=== PATIENT | female | born 1995 | race Caucasian/White ===

== ENCOUNTER → 2018-07-08 14:50 | Outpatient (CLI) | payer OTHER, SELFPAY ==
[2018-07-08 15:27] LABS: Absolute Lymphocyte Count 1.73 X10^3/ul (0.83-4.51); Absolute Neutrophil Count 4.5 X10^3/uL (2.0-7.7); Basophil# 0.01 X10^3/uL; Basophil% 0.2 % (0-1); Eosinophil# 0.05 X10^3/uL; Eosinophils% 0.8 % (0-5); Hematocrit 37.1 % (37-47); Hemoglobin 12.7 g/dl (12.0-15.0); Lymphocyte # 1.73 X10^3/ul (4.0); Lymphocyte % 26.2 % (19-41); Mean Corp Hgb Conc 34.2 g/gl (32-36); Mean Corpuscular Volume 93.5 fL (81-99); Mean Platelet Vol. 9.7 fl (6.2-12.0); Monocyte# 0.33 X10^3/uL; Neutrophil # 4.49 X10^3/uL (2.7-7.7); Neutrophil % 67.8 % (47-70); Platelet Count 238 K/mm3 (150-450); RBC Distribution Width CV 11.9 % (11.6-14.6); RBC Distribution Width SD 40.5 fl (35.1-43.9); Red Blood Count 3.97 M/mm3 (4.2-5.4); White Blood Count 6.6 K/mm3 (4.4-11.0)
[2018-07-08 15:42] LABS: POSITIVE COUNT NO; POSITIVE DIFFERENTIAL NO; POSITIVE MORPHOLOGY NO
[2018-07-08 20:57] LABS: Chlamydia Trachomatis by PCR Negative (Negative); Neisserai gonorrhoeae by PCR Negative (Negative); Probe Check PASS; Sample Adequacy Control PASS; Specimen Processing Control PASS
[2018-07-09 02:29] LABS: Rapid Plasmin Reagin (RPR) NONREACTIVE (NONREACTIVE)
[2018-07-09 13:43] LABS: HIV - WCH Non-Reactive (Nonreactive)
[2018-07-10 13:36] LABS: HEPATITIS B SURFACE AG Negative (Negative)
[2018-07-14 11:29] LABS: HPV Reflexed? NOT INDICATED
== END ==
PROVIDERS: Visit Provider Obstetrics & Gynecology
DX: Z34.90 Encounter for supervision of normal pregnancy, unspecified, unspecified trimester (principal); Z12.4 Encounter for screening for malignant neoplasm of cervix
CPT/HCPCS: 36415; 85025; 86592; 86703; 86762; 86850; 86900; 87077; 87086; 87088; 87186; 87340; 87491; 87591; 88175; G0145

== ENCOUNTER → 2018-08-05 16:16 | Outpatient (CLI) | payer OTHER, SELFPAY | PROVIDERS: Referring Provider Nurse Practitioner Women's Health; Visit Provider Nurse Practitioner Women's Health | DX: O23.40 Unspecified infection of urinary tract in pregnancy, unspecified trimester (principal); B95.1 Streptococcus, group B, as the cause of diseases classified elsewhere; O09.90 Supervision of high risk pregnancy, unspecified, unspecified trimester; Z3A.00 Weeks of gestation of pregnancy not specified | CPT/HCPCS: 87077; 87086; 87088; 87186 ==

== ENCOUNTER → 2018-11-26 16:33 | Outpatient (CLI) | payer OTHER, SELFPAY ==
[2018-11-26 15:31] VITALS: BMI 26.8
[2018-11-26 17:03] LABS: Absolute Lymphocyte Count 1.57 X10^3/ul (0.83-4.51); Absolute Neutrophil Count 4.9 X10^3/uL (2.0-7.7); Basophil# 0.01 X10^3/uL; Basophil% 0.1 % (0-1); Eosinophil# 0.06 X10^3/uL; Eosinophils% 0.8 % (0-5); Hematocrit 35.8 % (37-47); Hemoglobin 12.2 g/dl (12.0-15.0); Lymphocyte # 1.57 X10^3/ul (4.0); Lymphocyte % 22.1 % (19-41); Mean Corp Hgb Conc 34.1 g/gl (32-36); Mean Corpuscular Hgb 33.8 pg (27.0-32.0); Mean Corpuscular Volume 99.2 fL (81-99); Mean Platelet Vol. 9.6 fl (6.2-12.0); Monocyte% 8.4 % (0-10); Neutrophil # 4.87 X10^3/uL (2.7-7.7); Neutrophil % 68.5 % (47-70); Platelet Count 206 K/mm3 (150-450); RBC Distribution Width CV 12.7 % (11.6-14.6); RBC Distribution Width SD 44.2 fl (35.1-43.9); Red Blood Count 3.61 M/mm3 (4.2-5.4); White Blood Count 7.1 K/mm3 (4.4-11.0)
[2018-11-26 17:04] LABS: POSITIVE COUNT NO; POSITIVE DIFFERENTIAL NO; POSITIVE MORPHOLOGY NO
[2018-11-26 18:04] LABS: Glucose Challenge Gest 1H 50g 97 mg/dL (70-140)
== END ==
PROVIDERS: Referring Provider Obstetrics & Gynecology; Visit Provider Obstetrics & Gynecology
DX: Z34.90 Encounter for supervision of normal pregnancy, unspecified, unspecified trimester (principal)
CPT/HCPCS: 36415; 82950; 85025

== ENCOUNTER 2019-02-18 07:05 | Inpatient (IN) | payer OTHER, SELFPAY ==
[2019-02-17 15:22] VITALS: BMI 27.8
[2019-02-18] VITALS (16 sets, daily range): BP systolic 57–125; BP diastolic 17–80; PULSE 69–96; RESP 15–18; TEMP 36.2–37.3; O2SAT 94–99; BMI 29.7
--- NOTE | 2019-02-18 07:48 | PCM.HPOB.BLA ---
- Problem List (1) GBS (group B streptococcus) UTI complicating Status: Acute Qualifiers: Comment: Tx ampicillin Will need antibiotic in labor (2) History of pulmonary embolism Status: Acute Comment: postop PE and no fam hx/coagulopathy. Discussed with pt and prefer expectant management, no anticoagulation antepartem but 6 wk pp if c section. (3) Status: Acute Qualifiers: Comment: declines genetic screens. MFM anatomy US normal. (4) Supervision of high-risk Status: Acute Qualifiers: Comment: PRR Gender surprise GRICELDA 02/15/19 surprise Saleem History and Physical Date of Admission: 02/18/19 Intake Vital Signs 02/17/19 Blood Pressure 118/82 H 02/17/19 Body Mass Index (BMI) 27.8 02/17/19 Height 5 ft 4 in 02/17/19 Weight: 171 lb 8 oz 02/17/19 Body Mass Index (BMI) 29.4 Intake Visit Reasons: 40 week ob Chief Complaint: est ob [employer] Supervisor Required: No Is patient in pain?: No Allergies No Known Allergies Allergy (Verified 02/17/19 15:22) Medications vitamin,calcium,qumpudog-vncw-ipasq acid tablet 1 tab PO DAILY 07/08/18 [History Confirmed 02/17/19] Last Menstral Period: 05/09/18 Zika: Zika virus screening: Negative : No PFSH PFSH Medical History Personal history of pulmonary embolism (Acute) Surgical History History of hip surgery (Acute) Family History Grandfather Diabetes Social History Smoking Status: Never smoker alcohol intake: never substance use type: does not use caffeine: Yes what type of physical activity do you participate in: walking seatbelt use: always do you feel safe at home: Yes additional social history: Saleem- [employer] 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 OB Visit GRICELDA Calculator Estimated Delivery Date 02/13/19 Based on LMP (certain) 05/09/18 Current WG 40w 4d Number 1 Expected Delivery Route/Plan Specific Issue/Plans flu vaccine: declines tdap vaccine: given rhogam: NA LARC form signed: declined labor support person: Saleem pain management: epidural cut cord/dad catch: yes : yes PP control planned: [] special requests: [] Initial Weight: 134 lb Date EGA Weight BP Urine Prot Glucose FHR FuHt Pres Mov CTX Dilation Effaced St Visit Note 08/05/18 12w 4d 134 lb (+0 oz) Negative Negative 165 Doing well. Nausea manageable. NO VB. LOF. 08/31/18 16w 2d 137 lb 6 oz (+3 lb 6 oz) 118/72 Negative Negative 145 no vb cramping 09/28/18 20w 2d 141 lb 6 oz (+7 lb 6 oz) 112/64 Negative Negative 153 Active Doing well. No Vb, LOF 10/29/18 24w 5d 148 lb 6 oz (+14 lb 6 oz) 122/58 140 Active no vb lof cramping 11/26/18 28w 5d 156 lb 4 oz (+22 lb 4 oz) 110/68 140 Active absent no vb lof good fm no regular ctx cbc gct tdap larc form signed 12/09/18 30w 4d 157 lb (+23 lb) 100/72 Negative Negative 140 31 Active absent no vb lof good fm no regular ctx , declined childbirth classes 12/23/18 32w 4d 162 lb (+28 lb) 120/82 Negative Negative 125 32 Active absent no vb lof good fm 01/20/19 36w 4d 167 lb (+33 lb) 120/84 Negative Negative 135 37 Cephalic Active absent no vb lof good fm no regular ctx 01/27/19 37w 4d 169 lb (+35 lb) 126/68 Negative Negative 127 38 Cephalic Active absent 1: . -3 NO reg CTX. More pressure. No VB, LOF. Good FM 02/03/19 38w 4d 168 lb (+34 lb) 110/78 Negative Negative 130 39 Cephalic Active absent 1.5 2: 0 -3 no vb lof good fm n oregular ctx 02/10/19 39w 4d 169 lb 4 oz (+35 lb 4 oz) 116/80 Negative Negative 136 39 Cephalic Active absent 2.50 -3 No VB, LOF. No reg CTX 02/17/19 40w 4d 171 lb 8 oz (+37 lb 8 oz) 118/82 Negative Negative 130 40 Cephalic Active absent 3 6: 0 -2 no vb lof good fm no regualr ctx Visit Notes Visit Date: 02/17/19 ??no vb lof good fm no regualr ctx ??Susana Valencia MD on 02/17/19 Visit Date: 02/10/19 ??No VB, LOF. No reg CTX ??NIVIA DoC on 02/10/19 Visit Date: 02/03/19 ??no vb lof good fm n oregular ctx ??Susana Valencia MD on 02/03/19 Visit Date: 01/27/19 ??NO reg CTX. More pressure. No VB, LOF. Good FM ??NIVIA DoC on 01/27/19 Visit Date: 01/20/19 ??no vb lof good fm no regular ctx ??Susana Valencia MD on 01/20/19 Visit Date: 12/23/18 ??no vb lof good fm ??Susana Valencia MD on 12/23/18 Visit Date: 12/09/18 ??no vb lof good fm no regular ctx , declined childbirth classes ??Susana Valencia MD on 12/09/18 Visit Date: 11/26/18 ??no vb lof good fm no regular ctx cbc gct tdap larc form signed ??Susana Valencia MD on 11/26/18 Visit Date: 10/29/18 ??no vb lof cramping ??Susana Valencia MD on 10/29/18 Visit Date: 09/28/18 ??Doing well. No Vb, LOF ??ISHA Do on 09/28/18 Visit Date: 08/31/18 ??no vb cramping ??Susana Valencia MD on 08/31/18 Visit Date: 08/05/18 ??Doing well. Nausea manageable. NO VB. LOF. ??ISHA Do on 08/05/18 ACOG First Trimester First Trimester: Desire for , Alcohol, Tobacco Cessation, Illicit/Recreational Drug/Substance Use, Intimate Partner Violence, Barriers to care, Unstable Housing, Communication Barriers, Environmental/Work Hazards, Anticipated Course of Care, Toxoplasmosis Precations, Use of Any medications, Sexual activity, Exercise, Dental Care, Sauna/Hot tub use, Seat Belt use, Childbirth classes/Hospital facilities, , Travel, Indications for US and Screening for Aneuploidy Diagnostics Diagnostics Labs Hct 35.8 % (37-47) L 11/26/18 Hgb 12.2 g/dl (12.0-15.0) 11/26/18 Glucose 1 Hr 50 gm 97 mg/dL (70-140) 11/26/18 Details: HIV: Urine Culture: Sequential Screen: NIPT Screen: Results [id number] Office Urine Glucose Negative Last Edit by Huong German on 02/17/19 15:25 Office Urine Protein Negative Last Edit by Huong German on 02/17/19 15:25 [id number] Office Urine Glucose Negative Last Edit by Huong German on 02/17/19 15:30 Office Urine Protein Negative Last Edit by Huong German on 02/17/19 15:30 Assessment & Plan Problems 1. Group B Streptococcus urinary tract infection affecting in third trimester O23.43 2. Supervision of high risk in third trimester O09. 3. 40 weeks gestation of Z3A.40 4. History of pulmonary embolism Z86.711 Plan Patient presents IOL, plan management for , pitocin/AROM . Pain management: plans epidural. GBS positive plan PCN Management of any complications: none I have reviewed the [facility] and made any clinically relevant updates. movement and labor precautions reviewed. ACOG trimester education reviewed and updated. see problem list details for updated plan management information and see below for orders placed at this visit. GA appropriate handout given. Orders Orders: POC Urinalysis 2 Dip (Clinic) Today POC Urinalysis 2 Dip (Clinic) Today Coding Level of Care Code OB Routine Diagnoses Group B Streptococcus urinary tract infection affecting in third trimester O23.43 ??Trimester: third trimester Supervision of high risk in third trimester O09.93 ??Trimester: third trimester 40 weeks gestation of Z3A.40 ??Weeks of gestation: 40 weeks History of pulmonary embolism Z86.711
[2019-02-18] MEDS: Lactated Ringers 1,000 ML 50 ML IV (07:55)
[2019-02-18 08:24] LABS: Absolute Lymphocyte Count 1.74 X10^3/ul (0.83-4.51); Absolute Neutrophil Count 5.3 X10^3/uL (2.0-7.7); Basophil# 0.01 X10^3/uL; Basophil% 0.1 % (0-1); Eosinophil# 0.03 X10^3/uL; Eosinophils% 0.4 % (0-5); Hematocrit 34.3 % (37-47); Hemoglobin 11.4 g/dl (12.0-15.0); Lymphocyte # 1.74 X10^3/ul (4.0); Lymphocyte % 22.8 % (19-41); Mean Corp Hgb Conc 33.2 g/gl (32-36); Mean Corpuscular Hgb 31.8 pg (27.0-32.0); Mean Corpuscular Volume 95.5 fL (81-99); Mean Platelet Vol. 10.1 fl (6.2-12.0); Monocyte# 0.59 X10^3/uL; Monocyte% 7.7 % (0-10); Neutrophil # 5.26 X10^3/uL (2.7-7.7); Neutrophil % 68.9 % (47-70); Platelet Count 196 K/mm3 (150-450); RBC Distribution Width CV 14.2 % (11.6-14.6); RBC Distribution Width SD 49.1 fl (35.1-43.9); Red Blood Count 3.59 M/mm3 (4.2-5.4); White Blood Count 7.6 K/mm3 (4.4-11.0)
[2019-02-18 08:28] LABS: POSITIVE COUNT NO; POSITIVE DIFFERENTIAL NO; POSITIVE MORPHOLOGY NO
[2019-02-18] MEDS: fentaNYL-bupivacaine (epidural) 100 ML BAG EPIDURAL (09:45)
[2019-02-18] MEDS: Lactated Ringers 1,000 ML 999 ML IV (10:00)
[2019-02-18] MEDS: CHLORHEXIDINE GLUC 2% CLOTH 1 EACH TOWELETTE TOPICAL (13:40)
[2019-02-18] MEDS: Sodium Citrate/Citric Acid 30 ML UDC PO (13:45)
[2019-02-18] MEDS: Cefazolin 2 GM in 0.9% Normal Saline 100 ML IV (14:00)
[2019-02-18] MEDS: Oxytocin 30 units/NS 500 ml 30 UNITS/500 ML IV.SOLN 167 UNITS IV (14:21)
--- NOTE | 2019-02-18 15:33 | PN_ITS ---
Progress Note after multiple position changes, patient is 5-6 cm and complete face presentation now, unable to be reduced manually or with position changes. r ecommend primary .
--- NOTE | 2019-02-18 15:36 | OP.PCM_ITS ---
Problem List (1) GBS (group B streptococcus) UTI complicating Status: Acute Qualifiers: Comment: Tx ampicillin Will need antibiotic in labor (2) History of pulmonary embolism Status: Acute Comment: postop PE and no fam hx/coagulopathy. Discussed with pt and prefer expectant management, no anticoagulation antepartem but 6 wk pp if c section. (3) Status: Acute Qualifiers: Comment: declines genetic screens. MFM anatomy US normal. (4) Supervision of high-risk Status: Acute Qualifiers: Comment: PRR Gender surprise GRICELDA 02/15/19 surprise Saleem Delivery Classification: MARYLOU Final GRICELDA: 02/13/19 Gestational age: 40 Weeks and 5 Days Indications: face presentation Indications for : Malpresentation Description of Procedure: The patient is a 23-year-old G1, P0 at 40 weeks 5 days who presented in active labor and was found to have a brow presentation and after laboring to 6 cm had a persistent face presentation despite multiple position changes. Patient was counseled and the decision to proceed with a primary was made. Yung catheter was placed. The patient was placed in the dorsal supine position with leftward tilt. Patient was prepped and draped in the normal sterile fashion. Pfannenstiel skin incision was made with the scalpel and carried through to the underlying layer of fascia with the scalpel. Fascia was nicked in the midline and the incision extended laterally. The rectus bellies were dissected off superiorly and inferiorly with out complication both sharply and bluntly. The peritoneum was entered digitally. The incision was stretched and a low transverse uterine incision was made with the scalpel. The 's head was delivered atraumatically followed by the anterior and posterior shoulders without complication the rest of the infant delivered. The cord was clamped and cut and the was handed off to awaiting nurse. The placenta was delivered spontaneously immediately following and was noted to be intact and have a three- vessel cord. The uterus was exteriorized cleared of all clots and debris, and the incision was closed in a double layer closure using #1 Monocryl. The uterus was returned to the maternal abdomen and gutters were cleared of all clots and debris. The ovaries and fallopian tubes were noted to be within normal limits. The peritoneum was closed with 3-0 Monocryl in a running fashion. Fascia was closed with 0 PDS in a running fashion. Subcutaneous tissue was copiously irrigated and the skin was closed with 3-0 Monocryl in a subcuticular fashion. Steri-Strips and Mepilex dressing were applied without complication. Patient was taken to recovery in stable condition. Amniotic Membrane Rupture Type: Artificial Amniotic Fluid Description: Clear Placenta Disposition: [facility] Cord Entanglement: Around neck x 1, loose Esitmated Blood Loss (ml): 900 Infant Gender: Male Delayed cord clamping: Yes Pre-op Antibiotic Given: Ancef 2 grams IV x1 Pt instructed on risks of surgery: Bleeding, Anesthesia Risks, Infection Complications: None - Admit VTE Documentation VTE Present on Admission: No VTE Mechan Device Prophylaxis: SCD's
[2019-02-18] MEDS: Ondansetron 4 MG/2 ML Vial IV (19:42)
[2019-02-18] MEDS: Ketorolac 30 MG/ML Syringe IV (21:04)
[2019-02-18] MEDS: proMETHazine 25 MG/ML Syringe 12.5 MG IV (21:13)
[2019-02-18] MEDS: Lactated Ringers 1,000 ML 100 ML IV (21:33)
--- NOTE | 2019-02-18 21:43 | NURSING ---
Epidural catheter discontinued from pt's back. Pt. tolerated well. No bleeding noted at site. Blue tip of catheter intact.
[2019-02-19] VITALS (12 sets, daily range): BP systolic 93–113; BP diastolic 59–79; PULSE 70–96; RESP 15–17; TEMP 36.8–37.5; O2SAT 96–100
[2019-02-19] MEDS: Ketorolac 30 MG/ML Syringe IV ×4 (03:01→22:07)
[2019-02-19 04:52] LABS: Hematocrit 28.7 % (37-47); Hemoglobin 9.5 g/dl (12.0-15.0); Mean Corp Hgb Conc 33.1 g/gl (32-36); Mean Corpuscular Volume 96.6 fL (81-99); Mean Platelet Vol. 9.4 fl (6.2-12.0); Platelet Count 153 K/mm3 (150-450); RBC Distribution Width CV 14.2 % (11.6-14.6); RBC Distribution Width SD 47.3 fl (35.1-43.9); Red Blood Count 2.97 M/mm3 (4.2-5.4); White Blood Count 7.4 K/mm3 (4.4-11.0)
[2019-02-19 04:53] LABS: Scan Indicated on CBC? Y/N NO
[2019-02-19] MEDS: Lactated Ringers 1,000 ML 100 ML IV (06:38)
--- NOTE | 2019-02-19 09:40 | PCM.PN.OB ---
Subjective: doing well no complaints pain controlled no CP SOB N V tolerating po lochia moderate, going well - Physical Exam General: Alert, Oriented x3 Abdomen: Soft, Non Tender, Non-Distended, - - FF below U. Dressing dry and intact Vital Signs Temp Pulse Resp BP Pulse Ox 98.8 F 78 17 93/60 99 02/19/19 08:00 02/19/19 08:00 02/19/19 08:00 02/19/19 08:00 02/19/19 08:00 Oxygen Delivery Method Room Air Weight: 173 lb Body Mass Index (BMI) 29.7 Intake and Output for Last 24 Hours 02/17/19 02/18/19 02/19/19 23:59 23:59 23:59 Intake Total 820 / 820 2911 / 2911 Output Total 1150 / 1150 550 / 550 Balance -330 / -330 2361 / 2361 Laboratory Tests Past 24 Hrs 02/19/19 04:47 WBC 7.4 RBC 2.97 L Hgb 9.5 L Hct 28.7 L MCV 96.6 MCH 32.0 MCHC 33.1 RDW 14.2 RDW Differential 47.3 H Plt Count 153 MPV 9.4 Medical Necessity - Tobacco Use Smoking Status: Never smoker Assessment/Plan All Active Problems (Last Reviewed 02/17/19 @ 15:22 by Huong German) GBS (group B streptococcus) UTI complicating (Acute) Supervision of high-risk (Acute) (Acute) History of pulmonary embolism (Acute) s/p LTCS PPD # 1 1. routine post care 2. breast feeding- support given 3. rh positive 4. rubella immune 5. ambulate today 6. start lovenox today
[2019-02-19] MEDS: Enoxaparin 40 MG/0.4 ML Syringe SC ×2 (10:21→22:06)
[2019-02-19] MEDS: Prenatal Vits Tablet 1 TABLET PO (12:27)
[2019-02-19] MEDS: 0.9% Saline Lock 10 ML Syringe IV ×2 (17:08→22:06)
[2019-02-19] MEDS: Senna/Docusate Sodium 1 Tablet PO (22:06)
[2019-02-20 02:00] VITALS: BP 119/83; PULSE 85; RESP 16; TEMP 37
[2019-02-20] MEDS: Ketorolac 30 MG/ML Syringe IV ×3 (03:28→14:44)
[2019-02-20] MEDS: 0.9% Saline Lock 10 ML Syringe IV ×2 (03:28→14:44)
--- NOTE | 2019-02-20 08:08 | PCM.PN.OB ---
Subjective: doing well no complaints pain controlled no CP SOB N V ambulating well tolerating po lochia moderate, going well - Physical Exam General: Alert, Oriented x3 Abdomen: Soft, Non-Distended, - - FF below U. Dressing dry and intact Vital Signs Temp Pulse Resp BP Pulse Ox 98.6 F 85 16 119/83 H 99 02/20/19 02:00 02/20/19 02:00 02/20/19 02:00 02/20/19 02:00 02/19/19 14:00 Oxygen Delivery Method Room Air Weight: 173 lb Body Mass Index (BMI) 29.7 Intake and Output for Last 24 Hours 02/18/19 02/19/19 02/20/19 23:59 23:59 23:59 Intake Total 820 / 820 4138 / 4138 Output Total 1150 / 1150 2150 / 2150 Balance -330 / -330 1987 / 1987 Medical Necessity - Tobacco Use Smoking Status: Never smoker Assessment/Plan All Active Problems (Last Reviewed 02/17/19 @ 15:22 by Huong German) GBS (group B streptococcus) UTI complicating (Acute) Supervision of high-risk (Acute) (Acute) History of pulmonary embolism (Acute) s/p LTCS PPD # 2 1. routine post care 2. breast feeding- support given 3. rh positive 4. rubella immune 5. hx of PE -lovenox
[2019-02-20 09:00] VITALS: BP 125/89; PULSE 78; RESP 16; TEMP 37.4
[2019-02-20] MEDS: Enoxaparin 40 MG/0.4 ML Syringe SC ×2 (09:14→22:50)
--- NOTE | 2019-02-20 12:55 | NURSING ---
pt up walking in virgen; tolerating well
[2019-02-20] MEDS: Prenatal Vits Tablet 1 TABLET PO (14:38)
[2019-02-20 14:59] VITALS: BP 112/79; PULSE 83; RESP 18; TEMP 37.2
[2019-02-20 20:25] VITALS: BP 126/95; PULSE 96; RESP 20; TEMP 37.4; O2SAT 96
[2019-02-20 20:27] VITALS: BP 120/81
[2019-02-20] MEDS: Acetaminophen 500 MG Tablet 1000 MG PO (20:59)
[2019-02-20] MEDS: Naproxen 250 MG Tablet PO (22:51)
[2019-02-20 22:59] VITALS: TEMP 37.3
[2019-02-21 03:21] VITALS: BP 142/93; PULSE 83; RESP 20; TEMP 36.7
[2019-02-21 03:26] VITALS: BP 123/87
--- NOTE | 2019-02-21 08:03 | PCM.PN.OB ---
Subjective: doing well no complaints pain controlled no CP SOB N V ambulating well tolerating po lochia moderate, going well - Physical Exam General: Alert, Oriented x3 Abdomen: Soft, Non-Distended, - - FF below U. Dressing dry and intact Vital Signs Temp Pulse Resp BP Pulse Ox 98.1 F 83 20 H 123/87 H 96 02/21/19 03:21 02/21/19 03:21 02/21/19 03:21 02/21/19 03:26 02/20/19 20:25 Oxygen Delivery Method Room Air Weight: 173 lb Body Mass Index (BMI) 29.7 Intake and Output for Last 24 Hours 02/19/19 02/20/19 02/21/19 23:59 23:59 23:59 Intake Total 4138 / 4138 Output Total 2150 / 2150 Balance 1987 / 1987 Medical Necessity - Tobacco Use Smoking Status: Never smoker Assessment/Plan All Active Problems (Last Reviewed 02/17/19 @ 15:22 by Huong German) GBS (group B streptococcus) UTI complicating (Acute) Supervision of high-risk (Acute) (Acute) History of pulmonary embolism (Acute) s/p LTCS PPD # 3 1. routine post care 2. breast feeding- support given 3. rh positive 4. rubella immune 5. continue lovenox X 6 weeks 6. home today
--- NOTE | 2019-02-21 08:05 | PCM.DC.SUM ---
Discharge Date and Diagnosis Date of Admission: 02/18/19 Hospital Course and Treatment Consultations 02/18/19 07:20 Consult: Anesthesia Routine Comment: Reason For Exam: LABOR Procedures: - - Primary LTCS face presentation. Summary of Care Provided: The patient is a 23 year old F Patient underwent section with routine recovery, return of normal bowel and bladder function. Ambulating, voiding and tolerating PO. Stable for discharge home POD #3. - Physical Exam Vital Signs Temp Pulse Resp BP Pulse Ox 98.1 F 83 20 H 123/87 H 96 02/21/19 03:21 02/21/19 03:21 02/21/19 03:21 02/21/19 03:26 02/20/19 20:25 Oxygen Delivery Method Room Air Weight: 173 lb Body Mass Index (BMI) 29.7 Intake and Output for Last 24 Hours 02/19/19 02/20/19 02/21/19 23:59 23:59 23:59 Intake Total 4138 / 4138 Output Total 2150 / 2150 Balance 1987 / 1987 Home Medications: Medications to take at Discharge vitamin,calcium,ivqtozvg-xpll-vmayf acid tablet 1 tab PO DAILY 07/08/18 Enoxaparin Sodium [Lovenox] 40 mg SQ DAILY 40 Days #20 ml 02/18/19 Naproxen [Naprosyn] 250 - 500 mg PO Q8H PRN PRN #30 tablet 02/18/19 Oxycodone HCl/Acetaminophen [Percocet 5-325] 1 - 2 tablet PO Q4H PRN PRN 7 Days #28 tablet 02/18/19 Following Prescrptions Were Given to Patient: Oxycodone HCl/Acetaminophen [Percocet 5-325] 1 - 2 tablet PO Q4H PRN PRN 7 Days #28 tablet PRN Reason: Moderate-Severe pain Naproxen [Naprosyn] 250 - 500 mg PO Q8H PRN PRN #30 tablet PRN Reason: MILD PAIN Enoxaparin Sodium [Lovenox] 40 mg SQ DAILY 40 Days #20 ml Primary Care Physician: Care Physician,No Primary [Primary Care Provider] - Medical Necessity - Tobacco Use Smoking Status: Never smoker Meaningful Use Info Meaningful Use Diagnoses (Choose all that apply): None applicable
--- NOTE | 2019-02-21 08:06 | PCM.DCCSEC ---
Additional Instructions: If you experience any of the following, contact your healthcare provider. Bleeding that soaks a pad every hour for 2 hours Fever 100.4 or higher Unrelieved incision or abdominal pain Swelling, redness, discharge or bleeding from your incision or episiotomy site Your incision begins to separate Problems urinating (including inability to urinate or burning while urinating). Visual changes Severe headache Flu-like symptoms Pain or redness in one of both of your breasts Pain, warmth, tenderness or swelling in your legs, especially the calf area Frequent nausea and vomiting Symptoms of depression or anxiety If you experience any of the following, call 911 or go to the nearest Emergency Room. Chest pain Problems breathing Seizure activity Partial or complete paralysis of a body part, slurred speech, weakness or drooping of the face, or a sudden inability to walk or hold your balance Allergies/Adverse Reactions: Allergies No Known Allergies Allergy (Verified 02/17/19 15:22) Medications to take at Discharge vitamin,calcium,kfodrfqn-xaly-sxwph acid tablet 1 tab PO DAILY 07/08/18 Enoxaparin Sodium [Lovenox] 40 mg SQ DAILY 40 Days #20 ml 02/18/19 Naproxen [Naprosyn] 250 - 500 mg PO Q8H PRN PRN #30 tablet 02/18/19 Oxycodone HCl/Acetaminophen [Percocet 5-325] 1 - 2 tablet PO Q4H PRN PRN 7 Days #28 tablet 02/18/19 The following prescriptions were given: Oxycodone HCl/Acetaminophen [Percocet 5-325] 1 - 2 tablet PO Q4H PRN PRN 7 Days #28 tablet PRN Reason: Moderate-Severe pain Naproxen [Naprosyn] 250 - 500 mg PO Q8H PRN PRN #30 tablet PRN Reason: MILD PAIN Enoxaparin Sodium [Lovenox] 40 mg SQ DAILY 40 Days #20 ml Follow-Up: Call to make an appointment with your doctor for an incision check in 1-2 weeks. You will also need a 6 week post- follow up appointment. Test results from this visit will be discussed in further detail at your follow-up appointment, if applicable. Primary Care Physician: Care Physician,No Primary [Primary Care Provider] -
--- NOTE | 2019-02-21 08:07 | DCINST_ITS ---
Additional Instructions: If you experience any of the following, contact your healthcare provider. * Bleeding that soaks a pad every hour for 2 hours * Fever 100.4 or higher * Unrelieved incision or abdominal pain * Swelling, redness, discharge or bleeding from your incision or episiotomy site * Your incision begins to separate * Problems urinating (including inability to urinate or burning while urinating). * Visual changes * Severe headache * Flu-like symptoms * Pain or redness in one of both of your breasts * Pain, warmth, tenderness or swelling in your legs, especially the calf area * Frequent nausea and vomiting * Symptoms of depression or anxiety If you experience any of the following, call 911 or go to the nearest Emergency Room. * Chest pain * Problems breathing * Seizure activity * Partial or complete paralysis of a body part, slurred speech, weakness or drooping of the face, or a sudden inability to walk or hold your balance Allergies/Adverse Reactions: Allergies No Known Allergies Allergy (Verified 02/17/19 15:22) Medications to take at Discharge vitamin,calcium,ignoodna-zulw-csgij acid tablet 1 tab PO DAILY 07/08/18 Enoxaparin Sodium [Lovenox] 40 mg SQ DAILY 40 Days #20 ml 02/18/19 Naproxen [Naprosyn] 250 - 500 mg PO Q8H PRN PRN #30 tablet 02/18/19 Oxycodone HCl/Acetaminophen [Percocet 5-325] 1 - 2 tablet PO Q4H PRN PRN 7 Days #28 tablet 02/18/19 The following prescriptions were given: Oxycodone HCl/Acetaminophen [Percocet 5-325] 1 - 2 tablet PO Q4H PRN PRN 7 Days #28 tablet PRN Reason: Moderate-Severe pain Naproxen [Naprosyn] 250 - 500 mg PO Q8H PRN PRN #30 tablet PRN Reason: MILD PAIN Enoxaparin Sodium [Lovenox] 40 mg SQ DAILY 40 Days #20 ml Follow-Up: Call to make an appointment with your doctor for an incision check in 1-2 weeks. You will also need a 6 week post- follow up appointment. Test results from this visit will be discussed in further detail at your follow- up appointment, if applicable. Primary Care Physician: Care Physician,No Primary [Primary Care Provider] -
[2019-02-21 09:58] VITALS: BP 115/81; PULSE 97; RESP 18; TEMP 36.5
== END 2019-02-21 10:00 | disposition home or self-care (01) | DRG 787 ==
PROVIDERS: Admitting Provider Obstetrics & Gynecology; Referring Provider Obstetrics & Gynecology; Visit Provider Obstetrics & Gynecology
DX: O32.3XX0 Maternal care for face, brow and chin presentation, not applicable or unspecified (principal); O98.82 Other maternal infectious and parasitic diseases complicating childbirth; O23.43 Unspecified infection of urinary tract in pregnancy, third trimester; B95.1 Streptococcus, group B, as the cause of diseases classified elsewhere; O69.81X0 Labor and delivery complicated by cord around neck, without compression, not applicable or unspecified; Z3A.40 40 weeks gestation of pregnancy; Z37.0 Single live birth; Z86.711 Personal history of pulmonary embolism
CPT/HCPCS: 59025; 59050; 76815; 85025; 85027; 86850; 86900; 94762; 99218; J7120; A4216; G0378; J2405

== ENCOUNTER → 2020-10-30 17:02 | Outpatient (CLI) | payer OTHER, SELFPAY ==
[2020-10-30 18:22] LABS: Amphetamine Urine VISTA NEGATIVE (<1000 ng/mL); Barbiturate Urine VISTA NEGATIVE (< 200 ng/mL); Benzodiazepine Urine VISTA NEGATIVE (< 200 ng/mL); Cocaine Urine VISTA NEGATIVE (< 300 ng/mL); Ecstacy Urine VISTA NEGATIVE (< 500 ng/mL); Methadone Urine VISTA NEGATIVE (< 300 ng/mL); PCP Urine VISTA NEGATIVE (< 25 ng/mL); THC Urine VISTA NEGATIVE (< 50 ng/mL); Vista UDS pH Range 6
[2020-10-30 19:54] LABS: Chlamydia Trachomatis by PCR Negative (Negative); Neisserai gonorrhoeae by PCR Negative (Negative); Probe Check PASS; Sample Adequacy Control PASS; Specimen Processing Control PASS
[2020-11-08 15:16] LABS: Chlamydia By Nucleic Acid AMP Negative; Gonococcus By Nucleic Acid AMP Negative; HPV, High Risk Negative
== END ==
PROVIDERS: Referring Provider Obstetrics & Gynecology; Visit Provider Obstetrics & Gynecology
DX: Z34.90 Encounter for supervision of normal pregnancy, unspecified, unspecified trimester (principal); Z12.4 Encounter for screening for malignant neoplasm of cervix
CPT/HCPCS: 80307; 87086; 87491; 87591; 87623; 87624; 88175; G0145

== ENCOUNTER 2020-11-26 13:41 | Day surgery (SDC) | payer OTHER, SELFPAY ==
[2019-03-30 10:14] VITALS: BMI 29.7
[2020-11-26] VITALS (7 sets, daily range): BP systolic 107–127; BP diastolic 71–85; PULSE 71–86; RESP 16; TEMP 36.3–37.2; O2SAT 96–99; BMI 23.8
--- NOTE | 2020-11-26 14:04 | PCM.HPOB.BLA ---
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 Susana Valencia MD) Smoking Status: Never smoker alcohol intake: never substance use type: does not use caffeine: Yes what type of physical activity do you participate in: walking seatbelt use: always do you feel safe at home: Yes additional social history: [employer] Patient is a a teacher [place] Pregancy History 2 Elective abortions Hx Para 1 Spontaneous abortions Hx # Term Pregnancies Ectopic pregnancies Hx # Pregnancies Multiple births # of living children 1 Past Pregnancies Del. Date Name GA/Weeks Outcome Route Bth Weight Gen Labor Lgth Anesthesia Del Locatn Provider FOB 02/18/19 Ajay 40 live - full term 7lbs 1oz Male spinal [facility] Delivery Date: 02/18/19 Face presentation, cord around neck x1 Papo,Shanda HPI SAB: Details: JOSEPH CREWS is a 25 year old who presents for early miscarriage vaginal bleeding. she has had significant cramping and pain, seen in the ER this morning and diagnosed with incomplete ab measuring 9 weeks even though she is supposed to be 12 weeks. she denies any fevers and up until this morning was previously asymptomatic. OB Visit GRICELDA Calculator Estimated Delivery Date Method Current WG Current Estimate 06/07/21 Ultrasound #1 12w 3d Other Estimates 06/09/21 LMP (Certain) 12w 1d Expected Delivery Route/Plan Specific Issue/Plans Initial Weight: Not Recorded Date EGA Weight BP Urine Prot Glucose FHR FuHt Pres Dilation Effaced St Visit Note 10/30/20 8w 4d 160 SM- CRL 1.5 cm cons with LMP 11/26/20 12w 3d ACOG First Trimester First Trimester: Desire for , Alcohol, Tobacco Cessation, Illicit/Recreational Drug/Substance Use, Intimate Partner Violence, Barriers to care, Unstable Housing, Communication Barriers, Environmental/Work Hazards, Anticipated Course of Care, Toxoplasmosis Precations, Use of Any medications, Sexual activity, Exercise, Dental Care, Sauna/Hot tub use, Seat Belt use, Childbirth classes/Hospital facilities, Travel, Indications for US and Screening for Aneuploidy; discussed Diagnostics Diagnostics Diagnostics Blood Type A POSITIVE 02/18/19 Antibody Screen NEGATIVE 02/18/19 Hgb 9.5 g/dl (12.0-15.0) L 02/19/19 Hct 28.7 % (37-47) L 02/19/19 N.gonorrhoeae DNA (COLLEEN) Negative 10/30/20 Details: HIV: Urine Culture: Sequential Screen: NIPT Screen: ROS Const Reports as per HPI, Denies fever(s) ENT Reports system reviewed and no additional complaints, except as docu Card Reports system reviewed and no additional complaints, except as docu Resp Reports system reviewed and no additional complaints, except as docu GI Reports as per HPI Reports as per HPI, Reports abnormal vaginal bleeding Musc Reports system reviewed and no additional complaints, except as docu Skin/Breast Reports system reviewed and no additional complaints, except as docu Neuro Yes system reviewed and no additional complaints, except as docu Endo Reports system reviewed and no additional complaints, except as docu Exam Const General: healthy appearing, comfortable, no acute distress HENMT Head: normal to inspection, normocephalic Neck Neck: no lymphadenopathy noted Thyroid: thyroid normal Chest Chest palpation & inspection: normal inspection of the chest Resp Effort & Inspection: normal respiratory effort Cardio Rate: regular rate Rhythm: regular rhythm GI Inspection: normal to inspection Palpation: soft, nontender External Female Exam: normal external appearance Speculum Exam - Vagina: normal appearance of the vagina, vaginal bleeding Bimanual Exam- Vagina & Uterus: uterine shape normal, uterus non-tender OB/External & Speculum: vaginal bleeding Speculum Exam: vaginal bleeding Skin General: no rashes or lesions noted Neuro General: no focal motor deficits Extrem General: normal to inspection, no pedal edema Psych Appearance: grossly normal Assessment & Plan Problems 1. Incomplete O03.4 plan immediate suction d and c due to bleeding Plan After discussing the patient's diagnosis and treatment plan options, patient wishes to proceed with surgical management. I have discussed with the patient the risks, benefits, and alternatives of the procedure which include but are not limited to risks of anesthesia, bleeding, infection, possible damage to bowel, bladder, or surrounding vasculature which could lead to additional surgery to evaluate any complications. Patient agrees to procedure and wishes to proceed. ACOG/uptodate references given for additional information regarding procedure. Coding Level of Care Code Off vis,est,level 4 Diagnoses Incomplete O03.4
--- NOTE | 2020-11-26 14:30 | POC_PTH ---
PATIENT: JOSEPH CREWS [place] [facility] [place][id number] AGE/SX: / ROOM: RE11/26/[address]: Dr. Susana Valencia MD : [id number] BED: DIS: 11/26/2020 SPEC #: [id number] RECD: 11/26/20 15:31 STATUS: ALLISON BRYNN #: [id number] LISBET: 11/26/20 14:[address]: Susana Valencia DEPT: SURGICAL PATHOLOGY RECD BY: Eliane Singh ENTERED: 11/27/20 07:14 SP TYPE: PROD CONC OTHR DR: No Primary Care Phys Tissues: Product of conception, NOS Procedures: Surgery Specimen Level IV HEADER OPERATION: Suction D & C PRE-OP DIAGNOSIS: Incomplete TISSUE SUBMITTED: Products of conception fresh for Anora testing MICROSCOPIC DIAGNOSIS Endometrium, curettage: Chorionic villi, decidualized stroma and trophoblastic cells consistent with products of conception. AM:kwadwo 11/28/2020 MICROSCOPIC DESCRIPTION Slides are reviewed. GROSS DESCRIPTION Received in fixative is one container labeled with the patient's name and designated products of conception. The specimen consists of multiple irregular fragments of red-preston soft tissue that in aggregate measure 10 x 7 x 1.5 cm. parts are not grossly recognized. [employer] portions are submitted in one cassette. / AM:kwadwo 11/27/20 TC:5 CPT: 42819
[2020-11-26] MEDS: Lactated Ringers 1,000 ML 100 ML IV (14:37)
[2020-11-26 14:48] LABS: Absolute Lymphocyte Count 1.62 X10^3/uL (0.83-4.51); Absolute Neutrophil Count 5.7 X10^3/uL (2.0-7.7); Basophil# 0.03 X10^3/uL; Basophil% 0.4 % (0-1); Eosinophil# 0.06 X10^3/uL; Eosinophils% 0.7 % (0-5); Hematocrit 35.2 % (37-47); Lymphocyte # 1.62 X10^3/ul (4.0); Lymphocyte % 20.2 % (19-41); Mean Corp Hgb Conc 34.1 g/dL (32-36); Mean Corpuscular Hgb 30.7 pg (27.0-32.0); Mean Platelet Vol. 9.9 fl (6.2-12.0); Monocyte# 0.59 X10^3/uL; Monocyte% 7.4 % (0-10); NRBC Flagged by Analyzer 0 % (0-5); Neutrophil % 71.2 % (47-70); Platelet Count 212 K/mm3 (150-450); RBC Distribution Width CV 14.4 % (11.6-14.6); Red Blood Count 3.91 M/mm3 (4.2-5.4)
[2020-11-26] MEDS: Doxycycline 100 MG CAPSULE PO (14:49)
--- NOTE | 2020-11-26 15:08 | PCM.OPRPT ---
Problem List (1) Incomplete Status: Acute Comment: plan immediate suction d and c due to bleeding Report of Operation Date of Procedure: 11/26/20 Pre-Operative Diagnosis: incomplete Post-Operative Diagnosis: same Surgery/Procedure Performed:: suction d and c Description of Surgical Findings:: 10 week size uterus Type of Anesthesia:: Local MAC Special Medications: none Specimen's removed: POC Drains: reese Estimated Blood Loss (mL): minimal Fluids Replaced: crystalloid Description of Procedure: Patient was taken to the operating room and placed under MAC local anesthesia. She was prepped and draped in the normal sterile fashion the dorsal lithotomy position. Bladder was drained of clear urine and anterior lip of the cervix was grasped and the uterus sounded to 9 cm. Cervix was progressively dilated to allow passage of a 9 mm suction curette. Progressive passes were made removing the retained products of conception without complication. Sharp curettage confirmed complete removal of the retained products. All instruments were removed from the vagina and excellent hemostasis was noted and the patient was taken to recovery in stable condition. Grafts/Implants Used: none - Complications none - Admit VTE Documentation VTE Present on Admission: No VTE Mechan Device Prophylaxis: SCD's Multi Select Codes - Urinary/Genital Urinary/Genital CPT Codes: 27744 Trmt of incomplete Ab, any TM
[2020-11-26] MEDS: Lubricating Jelly 60 GM Tube 30 GM TOPICAL (15:16)
[2020-11-26] MEDS: Lidocaine 1% (20 ml mdv) 20 ML Vial (15:18)
--- NOTE | 2020-11-26 15:23 | DCINST_ITS ---
Discharge Diet: No Restrictions Discharge Activity: Return to Normal Activity, May Shower, May Take a Tub Bath Allergies/Adverse Reactions: Allergies No Known Allergies Allergy (Verified 11/26/20 14:04) Medications to take at Discharge prenat.vits,mracelo,ycc-ilji-ofgum 1 tab PO DAILY 07/08/18 citalopram 20 mg tablet 20 mg PO DAILY #90 tab 05/31/19 Naproxen [Naprosyn] 250 - 500 mg PO Q8H PRN PRN #30 tab 11/26/20 Oxycodone HCl/Acetaminophen [Percocet 5-325] 1 - 2 tablet PO Q6H PRN PRN 7 Days #15 tablet 11/26/20 The following prescriptions were given: Naproxen [Naprosyn] 250 - 500 mg PO Q8H PRN PRN #30 tab PRN Reason: MILD PAIN Transmission Status: Pending to [facility] Oxycodone HCl/Acetaminophen [Percocet 5-325] 1 - 2 tablet PO Q6H PRN PRN 7 Days #15 tablet PRN Reason: Pain Transmission Status: Sent to [facility] Primary Care Physician: Care Physician,No Primary [Primary Care Provider] - Test Results: Test results from this visit will be discussed in further detail at your follow- up appointment, if applicable. Please Follow Up With: Susana Valencia MD - [phone]
[2020-11-26 15:35] LABS: Pathology Specimen OB SEE PATHOLOGY REPORT
== END 2020-11-26 16:34 | disposition home or self-care (01) ==
LOC: SDC 13:43 → AC 13:43
PROVIDERS: Referring Provider Obstetrics & Gynecology; Visit Provider Obstetrics & Gynecology
PROC: (CPT 59812; principal; 2020-11-26 14:15)
DX: O03.4 Incomplete spontaneous abortion without complication (principal); Z20.828 Contact with and (suspected) exposure to other viral communicable diseases; F41.9 Anxiety disorder, unspecified; Z79.899 Other long term (current) drug therapy
CPT/HCPCS: 01965; 59812; 85025; 86850; 86900; 86901; 87426; 88305; J7120; J2405

== ENCOUNTER 2022-02-03 10:02 | Outpatient (CLI) | payer OTHER, SELFPAY ==
[2022-02-03 10:25] LABS: Absolute Lymphocyte Count 1.57 X10^3/uL (0.83-4.51); Absolute Neutrophil Count 2.3 X10^3/uL (2.0-7.7); Basophil# 0.02 X10^3/uL; Basophil% 0.5 % (0-1); Eosinophil# 0.07 X10^3/uL; Eosinophils% 1.6 % (0-5); Hematocrit 35.6 % (37-47); Hemoglobin 11.2 g/dL (12.0-15.0); Lymphocyte # 1.57 X10^3/ul (0.83-4.51); Lymphocyte % 35.5 % (19-41); Mean Corp Hgb Conc 31.5 g/dL (32-36); Mean Corpuscular Hgb 27.8 pg (27.0-32.0); Mean Corpuscular Volume 88.3 fL (81-99); Mean Platelet Vol. 9.5 fl (6.2-12.0); Monocyte# 0.44 X10^3/uL; NRBC Flagged by Analyzer 0 % (0-5); Neutrophil # 2.31 X10^3/uL (2.7-7.7); Neutrophil % 52.2 % (47-70); Platelet Count 262 K/mm3 (150-450); RBC Distribution Width CV 14.7 % (11.6-14.6); RBC Distribution Width SD 47.5 fl (35.1-43.9); Red Blood Count 4.03 M/mm3 (4.2-5.4); White Blood Count 4.4 K/mm3 (4.4-11.0)
== END 2022-02-03 23:59 | disposition home or self-care (01) ==
PROVIDERS: Referring Provider Nurse Practitioner Women's Health; Visit Provider Nurse Practitioner Women's Health
DX: N92.0 Excessive and frequent menstruation with regular cycle (principal); Z13.29 Encounter for screening for other suspected endocrine disorder
CPT/HCPCS: 36415; 84443; 85025

== ENCOUNTER → 2024-05-11 | Outpatient (CLI) | payer OTHER, SELFPAY ==
[2024-05-11 17:05] LABS: Absolute Lymphocyte Count 1.68 X10^3/uL (0.83-4.51); Absolute Neutrophil Count 3.8 X10^3/uL (2.0-7.7); Basophil# 0.04 X10^3/uL; Basophil% 0.7 % (0-1); Eosinophil# 0.08 X10^3/uL; Eosinophils% 1.3 % (0-5); Hematocrit 37.9 % (37-47); Lymphocyte # 1.68 X10^3/ul (0.83-4.51); Lymphocyte % 27.4 % (19-41); Mean Corp Hgb Conc 31.7 g/dL (32-36); Mean Corpuscular Hgb 28.8 pg (27.0-32.0); Mean Corpuscular Volume 90.9 fL (81-99); Mean Platelet Vol. 10.1 fl (6.2-12.0); Monocyte# 0.52 X10^3/uL; Monocyte% 8.5 % (0-10); NRBC Flagged by Analyzer 0 % (0-5); Neutrophil % 61.9 % (47-70); Platelet Count 271 K/mm3 (150-450); RBC Distribution Width CV 13.9 % (11.6-14.6); RBC Distribution Width SD 46.7 fl (35.1-43.9); Red Blood Count 4.17 M/mm3 (4.2-5.4); White Blood Count 6.1 K/mm3 (4.4-11.0)
[2024-05-11 17:14] LABS: Vitamin D,25 Hydroxy 46.9 ng/mL
[2024-05-11 17:23] LABS: ALB/GLOB Ratio 0.9 RATIO (0.9-2.4); AST(SGOT) 18 U/L (15-37); Alanine Aminotransfer ALT/SGPT 19 U/L (13-56); Albumin, Serum 3.4 g/dL (3.2-5.0); Alkaline Phosphatase 56 U/L (45-117); Anion Gap 6 (5-15); BUN 15 mg/dL (7-18); BUN/Creat Ratio 20.1 RATIO (10-20); Calcium,Total 8.4 mg/dL (8.5-10.1); Chloride 105 mmol/L (98-107); Creatinine, Serum 0.75 mg/dL (0.55-1.02); EST Glomerular Filtration Rate 97 mL/min (>60); Est Glom Filt Rate - Afr Amer 117 mL/min (>60); Estradiol 94.8 pg/mL; Follicle Stimulating Hormone 3.7 mIU/mL; Globulin 3.7 g/dL (2.2-4.2); Glucose 96 mg/dL (74-106); Potassium 3.8 mmol/L (3.5-5.1); Protein, Total 7.1 g/dL (6.4-8.2); Sodium Level 138 mmol/L (136-145); T4 Free Direct 0.78 ng/dL (0.76-1.46); Thyroid Stim Hormone (TSH) 0.69 uIU/mL (0.358-3.74)
[2024-05-17 09:08] LABS: 17-Hydroxyprogesterone 160 ng/dL (.)
== END | disposition home or self-care (01) ==
LOC: LAB 16:00
PROVIDERS: Referring Provider Nurse Practitioner Family; Visit Provider Nurse Practitioner Family
DX: Z13.29 Encounter for screening for other suspected endocrine disorder (principal); N93.9 Abnormal uterine and vaginal bleeding, unspecified; Z13.21 Encounter for screening for nutritional disorder
CPT/HCPCS: 36415; 80053; 82306; 82627; 82670; 83001; 83498; 84403; 84439; 84443; 85025; 82626

== ENCOUNTER → 2024-05-23 | Outpatient (CLI) | payer OTHER, SELFPAY ==
--- NOTE | 2024-05-23 14:27 | US_ITS ---
STUDY: ULTRASOUND OF THE FEMALE PELVIS - COMPLETE REASON FOR EXAM: Female, 29 years old. AUB LMP: April 28, 2024. TECHNIQUE: Transabdominal and Transvaginal TECHNICAL QUALITY: Adequate. COMPARISON: None. FINDINGS: The uterus is anteverted and is in a midline position. The uterus measures 9.2 cm x 6.6 cm x 4.9 cm. Normal uterine cervix. The endometrium measures 11.8 mm in thickness, and is hyperechoic with a small amount of endometrial fluid.. There is no demonstrated endometrial mass. There is no demonstrated myometrial mass. I.U.D. - The patient does not have an I.U.D. The right ovary is visualized. The right ovary measures 3.9 cm x 2.5 cm x 1.9 cm. There is no right ovarian cyst or ovarian mass. There is no visualized right adnexal mass or complex lesion. There is normal arterial and normal venous vascularity. The left ovary is visualized. The left ovary measures 2.7 cm x 2.5 cm x 1.4 cm. There is no left ovarian cyst or ovarian mass. There is no visualized left adnexal mass or complex lesion. There is normal arterial and normal venous vascularity. There is no fluid in the cul-de-sac. US/Pelvic w/ Transvaginal IMPRESSION: The endometrium measures 11.8 mm. Small amount of endometrial fluid. Electronically Signed: Ovidio Rodriguez MD at 15:37 EDT ,
== END | disposition home or self-care (01) ==
PROVIDERS: Referring Provider Nurse Practitioner Family; Visit Provider Nurse Practitioner Family
DX: N93.9 Abnormal uterine and vaginal bleeding, unspecified (principal)
CPT/HCPCS: 76830; 76856

== ENCOUNTER → 2024-06-23 | Outpatient (CLI) | payer OTHER, SELFPAY ==
[2024-06-28 22:07] LABS: Chlamydia By Nucleic Acid AMP Negative (Negative); Gonococcus By Nucleic Acid AMP Negative (Negative)
[2024-06-30 15:09] LABS: HPV APTIMA, High Risk Negative (Negative)
== END | disposition home or self-care (01) ==
LOC: LABSPEC 16:25
PROVIDERS: Referring Provider Obstetrics & Gynecology; Visit Provider Obstetrics & Gynecology
DX: O09.90 Supervision of high risk pregnancy, unspecified, unspecified trimester (principal); Z3A.00 Weeks of gestation of pregnancy not specified; Z12.4 Encounter for screening for malignant neoplasm of cervix
CPT/HCPCS: 87491; 87591; 87624; 88175; G0145

== ENCOUNTER → 2024-08-08 | Outpatient (CLI) | payer OTHER, SELFPAY ==
[2024-08-08 15:51] LABS: Absolute Neutrophil Count 4.8 X10^3/uL (2.0-7.7); Basophil# 0.02 X10^3/uL; Basophil% 0.3 % (0-1); Eosinophil# 0.06 X10^3/uL; Eosinophils% 0.9 % (0-5); Hematocrit 34.2 % (37-47); Hemoglobin 11.4 g/dL (12.0-15.0); Lymphocyte % 20.9 % (19-41); Mean Corp Hgb Conc 33.3 g/dL (32-36); Mean Corpuscular Hgb 29.7 pg (27.0-32.0); Mean Corpuscular Volume 89.1 fL (81-99); Mean Platelet Vol. 9.9 fl (6.2-12.0); NRBC Flagged by Analyzer 0 % (0-5); Neutrophil # 4.82 X10^3/uL (2.7-7.7); Neutrophil % 71.8 % (47-70); Platelet Count 250 K/mm3 (150-450); RBC Distribution Width CV 14.2 % (11.6-14.6); RBC Distribution Width SD 45.5 fl (35.1-43.9); Red Blood Count 3.84 M/mm3 (4.2-5.4); White Blood Count 6.7 K/mm3 (4.4-11.0)
[2024-08-17 11:09] LABS: HIV 1/0/2 SCREEN Non Reactive (Non Reactive); Hep C Antibodies Non Reactive (Non Reactive); Syphilis Antibodies Non Reactive (Non Reactive)
== END | disposition home or self-care (01) ==
LOC: LAB 15:16
PROVIDERS: Referring Provider Obstetrics & Gynecology; Visit Provider Obstetrics & Gynecology
DX: O09.90 Supervision of high risk pregnancy, unspecified, unspecified trimester (principal); Z3A.00 Weeks of gestation of pregnancy not specified
CPT/HCPCS: 36415; 85025; 86703; 86762; 86780; 86803; 86850; 86900; 86901; 87086; 87088; 87340

== ENCOUNTER → 2024-11-09 | Outpatient (CLI) | payer OTHER, SELFPAY ==
[2024-11-09 14:12] LABS: Absolute Lymphocyte Count 0.66 X10^3/uL (0.83-4.51); Absolute Neutrophil Count 4.7 X10^3/uL (2.0-7.7); Basophil# 0.01 X10^3/uL; Basophil% 0.2 % (0-1); Eosinophil# 0.03 X10^3/uL; Eosinophils% 0.5 % (0-5); Hematocrit 31.3 % (37-47); Hemoglobin 10.1 g/dL (12.0-15.0); Lymphocyte # 0.66 X10^3/ul (0.83-4.51); Lymphocyte % 11.4 % (19-41); Mean Corp Hgb Conc 32.3 g/dL (32-36); Mean Corpuscular Hgb 30.2 pg (27.0-32.0); Mean Corpuscular Volume 93.7 fL (81-99); Mean Platelet Vol. 9.5 fl (6.2-12.0); Monocyte# 0.36 X10^3/uL; Monocyte% 6.2 % (0-10); NRBC Flagged by Analyzer 0 % (0-5); Neutrophil # 4.69 X10^3/uL (2.7-7.7); Neutrophil % 81.2 % (47-70); Platelet Count 239 K/mm3 (150-450); RBC Distribution Width CV 13.9 % (11.6-14.6); RBC Distribution Width SD 46.4 fl (35.1-43.9); Red Blood Count 3.34 M/mm3 (4.2-5.4); White Blood Count 5.8 K/mm3 (4.4-11.0)
[2024-11-09 14:35] LABS: Glucose Challenge Gest 1H 50g 153 mg/dL (70-140)
[2024-11-09 15:54] LABS: HIV - WCH Non-Reactive (Nonreactive); Syphilis Antibodies Non-reactive
== END | disposition home or self-care (01) ==
LOC: BWCLAB 13:45
PROVIDERS: Referring Provider Obstetrics & Gynecology; Visit Provider Obstetrics & Gynecology
DX: O09.90 Supervision of high risk pregnancy, unspecified, unspecified trimester (principal); Z3A.00 Weeks of gestation of pregnancy not specified; Z13.1 Encounter for screening for diabetes mellitus
CPT/HCPCS: 36415; 82950; 85025; 86703; 86780

== ENCOUNTER → 2024-11-21 | Outpatient (CLI) | payer OTHER, SELFPAY ==
[2024-11-21 10:36] LABS: Bedside Glucose 87 mg/dL (74-106)
[2024-11-21 11:19] LABS: Glucose GTT-Gestation. Fasting 85 mg/dL (<105)
[2024-11-21 12:37] LABS: Glucose GTT-Gestational 1 Hr 107 mg/dL (<190)
[2024-11-21 13:19] LABS: Glucose GTT-Gestational 2 Hr 107 mg/dL (<165)
[2024-11-21 13:44] LABS: Glucose GTT-Gestational 3 Hr 101 L (<145)
== END | disposition home or self-care (01) ==
LOC: LAB 09:51
PROVIDERS: Referring Provider Nurse Practitioner Women's Health; Visit Provider Nurse Practitioner Women's Health
DX: Z13.1 Encounter for screening for diabetes mellitus (principal)
CPT/HCPCS: 36415; 82951; 82952; 82962

== ENCOUNTER → 2025-01-03 | Outpatient (CLI) | payer OTHER, SELFPAY | END | disposition home or self-care (01) | LOC: LABSPEC 15:05 | PROVIDERS: Referring Provider Obstetrics & Gynecology; Visit Provider Obstetrics & Gynecology | DX: O09.93 Supervision of high risk pregnancy, unspecified, third trimester (principal); Z3A.00 Weeks of gestation of pregnancy not specified | CPT/HCPCS: 87077; 87081; 87186 ==

== ENCOUNTER 2025-01-13 11:50 | Inpatient (IN) | payer OTHER, SELFPAY ==
[2025-01-13] VITALS (37 sets, daily range): BP systolic 120–145; BP diastolic 64–96; PULSE 59–83; RESP 14–18; TEMP 35.9–37.1; O2SAT 68–100; BMI 32.1
[2025-01-13 10:49] LABS: Protein, Urine (Random) 28.8 mg/dL (0.0-12.0); Protein:Creat Ratio 149 mg/g CRE (0-200)
[2025-01-13 11:40] LABS: Hematocrit 28.8 % (37-47); Hemoglobin 9.9 g/dL (12.0-15.0); Mean Corp Hgb Conc 34.4 g/dL (32-36); Mean Corpuscular Hgb 30.4 pg (27.0-32.0); Mean Corpuscular Volume 88.3 fL (81-99); Mean Platelet Vol. 10.8 fl (6.2-12.0); Platelet Count 217 K/mm3 (150-450); RBC Distribution Width CV 14.6 % (11.6-14.6); RBC Distribution Width SD 46.4 fl (35.1-43.9); Red Blood Count 3.26 M/mm3 (4.2-5.4); White Blood Count 7.1 K/mm3 (4.4-11.0)
[2025-01-13 12:30] LABS: AST(SGOT) 25 U/L (<=31); Alanine Aminotransfer ALT/SGPT 10 U/L (<=34); Creatinine, Serum 0.64 mg/dL (0.70-1.20); EST Glomerular Filtration Rate 122 (>60); Uric Acid 5.2 mg/dL (2.6-6.0)
[2025-01-13 12:50] LABS: Syphilis Antibodies Nonreactive (Nonreactive)
[2025-01-13] MEDS: Acetaminophen 500 MG Tablet 1000 MG PO ×2 (13:26→19:53)
[2025-01-13 13:42] LABS: Hepatitis B Surface Antibody Nonreactive
[2025-01-13 14:04] LABS: Rubella IgG REAC (Nonreactive)
--- NOTE | 2025-01-13 15:44 | HP.PCM.OB_ITS ---
HPI - General General Date of Admission: 01/13/25 HPI Narrative JOSEPH CREWS, is a 29 F who presents with new onset gestational hypertension. she annikaie ev vb lof admits headaches intermittently the last few days, swelling, not feeling good. presented today with bps in the 140s over 90s. Maternal Data Information GRICELDA Calculator Estimated Delivery Date Method Current WG Current Estimate 01/31/25 LMP (Certain) 37w 3d Other Estimates 01/29/25 Ultrasound #1 37w 5d PFSH PFS Medical History (Updated 01/13/25 @ 15:[address] Susana Valencia MD) Pre-eclampsia Menorrhagia with regular cycle Personal history of pulmonary embolism Home Medications ?Medication ?Instructions ?Recorded ?Last Taken ?Type PNV 153-FA 400 mcg-om3 35 mg-dha 1 tab PO 01/13/25 09:00 History 25 mg-epa 5 mg-fish oil chew tablet 1 TAB citalopram 40 mg tablet 40 mg PO DAILY anxiety #60 t abs 06/10/24 01/12/25 21:00 Rx 40 mg Allergy/AdvReac Type Severity Reaction Status Date / Time No Known Allergies Allergy Verified 01/13/25 12:27 Family History Grandfather Diabetes Surgical History H/O dilation and curettage H/O: History of hip surgery Social History adopted: No household members: spouse and children number of children: 1 current occupational status: employed current occupation: teacher pets and animals: Yes pets and animals: dog(s) history of recent travel: Yes ([place], [place]) out of state: Yes out of country: No sexually active: Yes Smoking Status: Never smoker alcohol intake: never substance use type: does not use well-balanced diet: daily or most days caffeine: Yes (Not daily) Type: coffee Number of servings: 1 eating out: 1-3 times/week during the past year weight has: increased > 10 lbs what type of physical activity do you participate in: walking and swimming frequency: 3-4 times per week duration: 45-60 minutes/day gerardo/protestant: Episcopal seatbelt use: always do you feel safe at home: Yes additional social history: [employer]- [employer] Patient is a a teacher withee History 3 Elective abortions Hx Para 1 Spontaneous abortions 1 Hx # Term Pregnancies Ectopic pregnancies Hx # Pregnancies Multiple births # of living children 1 Past Pregnancies Del. Date Name GA/Weeks Outcome Route Bth Weight Gen Labor Lgth Anesthesia Del Locatn Provider FOB 02/18/19 Ajay 40 live - full term 7lbs 1oz Male spinal [facility] 11/26/20 Missed AB 9 [facility] SM Delivery Date: 02/18/19 Last Updated by: Shanda Barros Face presentation, cord around neck x1 Delivery Date: 11/26/20 Last Updated by: Frances De La O suction D&C Visit Details Expected Delivery Route/Plan plan if spontaneous labor prior to scheduled RLTCS at 39 weeks patient counseled regarding risks/benefits of trial of labor versus repeat . ACOG/uptodate education given to patient. [] % likelihood of success per calculator TOLAC consent form signed: [] Labor Preferences- CB/BF classes: [] labor support person: [] labor intervention preferences: [] pain management options preferred: [] cut cord/dad catch: [] : [] PP control planned: [] discussed possible routes of delivery and associated risks: [] special requests: [] Plans Covid status: [] Flu vaccine: declined Tdap vaccine: [] Rhogam: NA LARC form signed: yes Problem list reviewed and updated with the most current plan of care details and appropriate orders placed. Relevant counseling for the gestational age provided. Continue routine care and follow up unless otherwise noted in visit notes/problem list details OB Flowsheet Initial Weight: Not Recorded Date -?-?-?-?-?-?-?-?-?-?-?-?- EGA Weight BP Urine Prot -?-?-?-?-?-?-?-?-?-?-?-?- Glucose FHR FuHt Pres Dilation -?-?-?-?-?-?-?-?-?-?-?-?- Effaced St Visit Note 06/23/24 -?-?-?-?-?-?-?-?-?-?-?-?- 8w 2d 154 lb 129/81 Negative -?-?-?-?-?-?-?-?-?-?-?-?- Negative 160 -?-?-?-?-?-?-?-?-?-?-?-?- SM CRL 1.9 cm co ns with LMP 07/15/24 -?-?-?-?-?-?-?-?-?-?-?-?- 11w 3d 152 lb 8 oz 127/82 Nega tive -?-?-?-?-?-?-?-?-?-?-?-?- Negative 160 -?-?-?-?-?-?-?-?-?-?-?-?- SM- no vb some c ramping 08/08/24 -?-?-?-?-?-?-?-?-?-?-?-?- 14w 6d 156 lb 4 oz 122/79 -?-?-?-?-?-?-?-?-?-?-?-?- 147 -?-?-?-?-?-?-?-?-?-?-?-?- JV- patient now want NIPT but needs to come back for it due to her ride waiting for her. SHe is unsure if she wants to 09/14/24 -?-?-?-?-?-?-?-?-?-?-?-?- 20w 1d 161 lb 4 oz 101/69 Trac e -?-?-?-?-?-?-?-?-?-?-?-?- Negative 145 -?-?-?-?-?-?-?-?-?-?-?-?- SM- no vb lof go od fm no reuglar ctx discussed TOLAC if psontaneous labor plan RLTCS anywhere between 39-41 weeks based on patient preference 10/12/24 -?-?-?-?-?-?-?-?-?-?-?-?- 24w 1d 167 lb 109/65 Negative -?-?-?-?-?-?-?-?-?-?-?-?- Negative 140 24 -?-?-?-?-?-?-?-?-?-?-?-?- SM- no vb lof go od fm nor egualr ctx 11/09/24 -?-?-?-?-?-?-?-?-?-?-?-?- 28w 1d 171 lb 8 oz 117/76 Nega tive -?-?-?-?-?-?-?-?-?-?-?-?- Negative 141 28 -?-?-?-?-?-?-?-?-?-?-?-?- MH-No VB, LOF. G ood FM. Had GI virus yesterday. Has had cough also. No fever today but doesn't feel well today. Enc rest, fluids, PCP if sx persist/worsen. 11/23/24 -?-?-?-?-?-?-?-?-?-?-?-?- 30w 1d 175 lb 6 oz 111/72 Trac e -?-?-?-?-?-?-?-?-?-?-?-?- Negative 1 30 -?-?-?-?-?-?-?-?-?-?-?-?- MH-No VB, LOF. G ood FM. Denies concerns. Larc 12/06/24 -?-?-?-?-?-?-?-?-?-?-?-?- 32w 0d 181 lb 2 oz 122/80 Trac e -?-?-?-?-?-?-?-?-?-?-?-?- Negative 135 33 -?-?-?-?-?-?-?-?-?-?-?-?- SM- no vb lof go od fm no regular ctx 12/19/24 -?-?-?-?-?-?-?-?-?-?-?-?- 33w 6d 184 lb 8 oz 114/77 Nega tive -?-?-?-?-?-?-?-?-?-?-?-?- Negative 130 35 -?-?-?-?-?-?-?-?-?-?-?-?- KW- no vb/lof/ct x. good fm. questions answered 01/03/25 -?-?-?-?-?-?-?-?-?-?-?-?- 36w 0d 187 lb 6 oz 120/79 Nega tive -?-?-?-?-?-?-?-?-?-?-?-?- Negative 130 38 -?-?-?-?-?-?-?-?-?-?-?-?- SM- co lower jerardo k pain. no vb lof good fm no reuglar ctx gbs collected discussed tolac likely ust wants RLTCS 01/13/25 -?-?-?-?-?-?-?-?-?-?-?-?- 37w 3d 189 lb 6 oz 137/90 1+ -?-?-?-?-?-?-?-?-?-?-?-?- Negative 135 38 -?-?-?-?-?-?-?-?-?-?-?-?- KW- no vb/lof/ct x. good fm. sent to wp to r/o pre e NST FHR Rate Baby A Baseline: 130 Variability:: Moderate Accelerations:: 15 x 15 Decelerations:: None NST Reactive:: Yes FHR Category:: Category I Uterine Activity:: irregular ROS Constitutional Constitutional: Reports systems reviewed and no addt'l complaints, except as documented Eyes Eyes: Denies change in vision ENT HEENT: Reports systems reviewed and no addt'l complaints, except as documented; Denies headache(s) Cardiovascular Cardiovascular: Reports systems reviewed and no addt'l complaints, except as documented; Denies chest pain or dyspnea Respiratory/Chest Respiratory/Chest: Reports systems reviewed and no addt'l complaints, except as documented Gastrointestinal Gastrointestinal: Reports systems reviewed and no addt'l complaints, except as documented; Denies abdominal pain Genitourinary Genitourinary: Reports systems reviewed and no addt'l complaints, except as documented, contractions Details: present (irregular) and movement D etails: present; Denies dysuria or genital lesions Musculoskeletal Musculoskeletal: Reports systems reviewed and no addt'l complaints, except as documented Neurologic Neurologic: Reports systems reviewed and no addt'l complaints, except as documented Endocrine Endocrinology: Reports systems reviewed and no addt'l complaints, except as documented Vital Signs Vital Signs Vital Signs: 01/13/25 10:54 01/13/25 10:54 01/13/25 10:59 Temperature Temperature Source Pulse Rate 74 69 Respiratory Rate Blood Pressure Blood Pressure Mean BP Systolic BP Diastolic Blood Pressure Source Blood Pressure Position Blood Pressure Location Pulse Ox 99 Oxygen Delivery Method 01/13/25 10:59 01/13/25 11:04 01/13/25 11:04 Temperature Temperature Source Pulse Rate 77 Respiratory Rate Blood Pressure Blood Pressure Mean BP Systolic BP Diastolic Blood Pressure Source Blood Pressure Position Blood Pressure Location Pulse Ox 99 98 Oxygen Delivery Method 01/13/25 11:24 01/13/25 11:24 01/13/25 11:41 Temperature Temperature Source Pulse Rate 69 Respiratory Rate Blood Pressure 133/90 H 132/89 H Blood Pressure Mean BP Systolic 133 132 BP Diastolic 90 89 Blood Pressure Source Blood Pressure Position Blood Pressure Location Pulse Ox Oxygen Delivery Method 01/13/25 11:41 01/13/25 11:54 01/13/25 11:54 Temperature Temperature Source Pulse Rate 73 75 Respiratory Rate Blood Pressure 130/92 H Blood Pressure Mean BP Systolic 130 BP Diastolic 92 Blood Pressure Source Blood Pressure Position Blood Pressure Location Pulse Ox Oxygen Delivery Method 01/13/25 12:10 01/13/25 12:10 01/13/25 12:13 Temperature Temperature Source Pulse Rate 71 Respiratory Rate Blood Pressure 128/84 H 143/95 H Blood Pressure Mean BP Systolic 128 143 BP Diastolic 84 95 Blood Pressure Source Blood Pressure Position Blood Pressure Location Pulse Ox Oxygen Delivery Method 01/13/25 12:13 01/13/25 12:24 01/13/25 12:24 Temperature Temperature Source Pulse Rate 75 66 Respiratory Rate Blood Pressure 135/93 H Blood Pressure Mean BP Systolic 135 BP Diastolic 93 Blood Pressure Source Blood Pressure Position Blood Pressure Location Pulse Ox Oxygen Delivery Method 01/13/25 12:40 01/13/25 12:40 01/13/25 12:54 Temperature Temperature Source Pulse Rate 68 Respiratory Rate Blood Pressure 133/94 H 130/85 H Blood Pressure Mean BP Systolic 133 130 BP Diastolic 94 85 Blood Pressure Source Blood Pressure Position Blood Pressure Location Pulse Ox Oxygen Delivery Method 01/13/25 12:54 01/13/25 13:22 01/13/25 13:22 Temperature Temperature Source Pulse Rate 65 69 Respiratory Rate Blood Pressure 123/84 H Blood Pressure Mean BP Systolic 123 BP Diastolic 84 Blood Pressure Source Blood Pressure Position Blood Pressure Location Pulse Ox Oxygen Delivery Method 01/13/25 13:25 01/13/25 13:25 01/13/25 13:35 Temperature 98.7 F Temperature Source Oral Pulse Rate 60 60 Respiratory Rate 16 Blood Pressure 127/80 H 127/80 H Blood Pressure Mean 95 BP Systolic 127 BP Diastolic 80 Blood Pressure Source Monitor Blood Pressure Position Semi-Fowlers Blood Pressure Location Left Arm Pulse Ox 99 Oxygen Delivery Method Room Air 01/13/25 13:39 01/13/25 13:39 01/13/25 13:55 Temperature Temperature Source Pulse Rate 72 Respiratory Rate Blood Pressure 135/83 H 122/81 H Blood Pressure Mean BP Systolic 135 122 BP Diastolic 83 81 Blood Pressure Source Blood Pressure Position Blood Pressure Location Pulse Ox Oxygen Delivery Method 01/13/25 13:55 01/13/25 14:10 01/13/25 14:10 Temperature Temperature Source Pulse Rate 62 59 L Respiratory Rate Blood Pressure 130/82 H Blood Pressure Mean BP Systolic 130 BP Diastolic 82 Blood Pressure Source Blood Pressure Position Blood Pressure Location Pulse Ox Oxygen Delivery Method 01/13/25 14:24 01/13/25 14:24 01/13/25 14:39 Temperature Temperature Source Pulse Rate 66 Respiratory Rate Blood Pressure 122/80 H 123/78 H Blood Pressure Mean BP Systolic 122 123 BP Diastolic 80 78 Blood Pressure Source Blood Pressure Position Blood Pressure Location Pulse Ox Oxygen Delivery Method 01/13/25 14:39 01/13/25 14:54 01/13/25 14:54 Temperature Temperature Source Pulse Rate 69 70 Respiratory Rate Blood Pressure 122/79 H Blood Pressure Mean BP Systolic 122 BP Diastolic 79 Blood Pressure Source Blood Pressure Position Blood Pressure Location Pulse Ox Oxygen Delivery Method 01/13/25 15:09 01/13/25 15:09 01/13/25 15:25 Temperature Temperature Source Pulse Rate 75 Respiratory Rate Blood Pressure 126/81 H 140/93 H Blood Pressure Mean BP Systolic 126 140 BP Diastolic 81 93 Blood Pressure Source Blood Pressure Position Blood Pressure Location Pulse Ox Oxygen Delivery Method 01/13/25 15:25 01/13/25 15:40 01/13/25 15:40 Temperature Temperature Source Pulse Rate 71 64 Respiratory Rate Blood Pressure 134/79 H Blood Pressure Mean BP Systolic 134 BP Diastolic 79 Blood Pressure Source Blood Pressure Position Blood Pressure Location Pulse Ox Oxygen Delivery Method Weight Weight: 187 lb 6 oz Body Mass Index (BMI) 32.1 Physical Exam Const alert, oriented x3, no apparent distress and healthy appearing HEENT normocephalic and moist oral mucous membranes Head and Scalp: atraumatic Neck full ROM, no lymphadenopathy, supple and thyroid normal General: trachea midline Lymph Lymphatic: no lymphadenopathy noted Chest inspection of chest normal Resp normal respiratory effort Cardio regular rate GI soft to palpation and non-tender GI Narrative: gravid Inspection: gravid external exam normal Manual OB Exam: estimated gestational size appropriate, presentation cephalic, dilated, effaced and station Extremity normal to inspection General Extremity: Negative for edema Skin no rashes or lesions noted Neuro no focal motor deficits and deep tendon reflexes 2+ bilaterally Motor Exam: strength 5/5 throughout and clonus absent Psych mental status grossly normal Labs Labs Labs: Blood Type A POSITIVE Antibody Screen NEGATIVE Hct 28.8 % (37-47) L Hgb 9.9 g/dL (12.0-15.0) L Pap Smear Negative Syphilis Total Ab Nonreactive (Nonreactive) Rubella IgG Antibody REAC (Nonreactive) Hep Bs Antigen Negative (Negative) Hepatitis C Ab (EIA) Non Reactive (Non Reactive) Chlamydia DNA (COLLEEN) Negative (Negative) N.gonorrhoeae DNA (COLLEEN) Negative (Negative) HIV 1&2 Antibody Non-Reactive (Nonreactive) Glucose 1 Hr 50 gm 153 mg/dL (70-140) H Gest Glucose Tolerance MG/DL Rhogam given: No Assessment & Plan (1) Gestational hypertension: (2) Anemia affecting in third trimester: COMMENT: add Fe OTC (3) Group B streptococcal infection in : COMMENT: 01/03/25, PCN in labor (4) Abnormal glucose level: COMMENT: Nl 3 HR GTT (5) UTI (urinary tract infection): QUALIFIERS: Urinary tract infection type: site unspecified Hematuria presence: without hematuria Qualified Code(s): N39.0 - Urinary tract infection, site not specified COMMENT: rpt culture neg (6) ASCUS of cervix with negative high risk HPV: COMMENT: repeat pap 3 years - 2026 (7) History of : COMMENT: plan RLTCS or if spontaneous labor, RLTCS scheduled for 01/24 @ 7:15 with SM (8) History of pulmonary embolism: COMMENT: 2016 after hip surgeryl. plan exp management in and lovenox post csection (9) Anxiety: (10) History of miscarriage, currently : (11) Supervision of high-risk : QUALIFIERS: Trimester: third trimester Qualified Code(s): O09.93 - Supervision of high risk , unspecified, third trimester COMMENT: PRR , GRICELDA 01/31/25, surprise PC Ajay, Saleem. Anatomy nl. (12) : QUALIFIERS: Weeks of gestation: 37 weeks Qualified Code(s): Z3A.37 - 37 weeks gestation of COMMENT: declines NIPT & Carrier testing. nl anatomy. (13) Depression: QUALIFIERS: Depression Type: unspecified Qualified Code(s): F32.A - Depression, unspecified COMMENT: with ANXIETY. managed with celexa 40mg PLAN: Plan proceed with RLTCS
--- NOTE | 2025-01-13 15:47 | EX.PCM.OBRPT ---
Maternal Data Information GRICELDA Calculator Estimated Delivery Date Method Current WG Current Estimate 01/31/25 LMP (Certain) 37w 3d Other Estimates 01/29/25 Ultrasound #1 37w 5d Final GRICELDA Source: LMP Operative Report (OB) Cecarean Details Procedure Type: low transverse Date of Procedure: 01/13/25 Procedure Start Time: 16:27 Procedure Stop Time: 17:35 Pre-Operative Diagnosis: Other Other Pre-Operative diagnosis: see a/p comments Post-Operative Diagnosis: Same as Pre-operative diagnosis Type of Anesthesia: Spinal Special Medications: none Antibiotic Given: Ancef 2 grams IV x1 Drain: Yung to straight drain Estimated Blood Loss: 600 Fluids Replaced: crystalloid Findings Description of surgery: Spinal anesthesia was placed without difficulty. Yung catheter was placed. The patient was placed in the dorsal supine position with leftward tilt. Patient was prepped and draped in the normal sterile fashion. Pfannenstiel skin incision was made with the scalpel and carried through to the underlying layer of fascia with the scalpel. Fascia was nicked in the midline and the incision extended laterally. The rectus bellies were dissected off superiorly and inferiorly with out complication both sharply and bluntly. The peritoneum was entered digitally. The incision was stretched and a low transverse uterine incision was made with the scalpel. The infant's head was delivered atraumatically followed by the anterior and posterior shoulders without complication the rest of the delivered. The cord was clamped and cut and the was handed off to awaiting nurse. The placenta was delivered spontaneously immediately following and was noted to be intact and have a three-vessel cord. The uterus was exteriorized cleared of all clots and debris, and the incision was closed in a single layer closure using #1 Monocryl. The ovaries and fallopian tubes were noted to be within normal limits. The uterus was returned to the maternal abdomen and gutters were cleared of all clots and debris. The peritoneum was closed with 3-0 Monocryl in a running fashion. Gloves were changed prior to fascial closure. Fascia was closed with 0 PDS in a running fashion. Subcutaneous tissue was copiously irrigated and the skin was closed with 3-0 Monocryl in a subcuticular fashion. Mepilex dressing was applied without complication. Patient was taken to recovery in stable condition. 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
--- NOTE | 2025-01-13 15:50 | DCINST_ITS ---
Discharge Instructions Diet Discharge Diet: No restrictions DC O2, CPAP, BIPAP needs Home O2 Discharge instructions: No Dressing / Incision Discharge Activity: May Not Drive (for 2 weeks or while taking narcotic pain medications.), May Shower and May Take a Tub Bath (in 7 days) May shower in (days): 0 May resume sexual activity in: 4-6 weeks Weight Bearing Status: Full weight bearing Lifting Restrictions: 20 pounds Dressing / Incision Call your doctor if your incision/area has: Continuous Slow Oozing, Sudden Increased Bleeding, Increased Pain/ Swelling, Increased Redness and Foul Smelling Discharge Call your doctor if you observe: Fever of 101 or Higher and Using more than 1 pad per hour (for 2 hours) Suture Line Care: Avoid Pulling/Pushing and Avoid Pinching/Bending Cleanse incision/area with: Soap & Water and Keep Dressing Clean & Dry Follow Up Care Please Follow Up With: Susana Valencia MD When: Call [phone] to make an appointment for an incision check in 1-2 weeks. Test Results: Test results from this visit will be discussed in further detail at your follow- up appointment, if applicable. Discharge Plan Admission Admit Date/Time: 01/13/25 11:50 Attending Provider: Susana Valencia Primary Care Provider: Care PhysicianKimberlyn Primary Discharge Orders/Prescriptions Prescriptions: New oxycodone-acetaminophen [Percocet] 5-325 mg tablet 1 tab PO Q4H PRN (Reason: pain) 7 Days Qty: 20 0RF naproxen 500 mg tablet 500 mg PO BID PRN PRN (Reason: Pain) Qty: 30 1RF enoxaparin [Lovenox] 40 mg/0.4 mL syringe 40 mg subcut DAILY 42 Days Qty: 16.8 1RF Continued citalopram 40 mg tablet 40 mg PO DAILY Qty: 60 3RF No Action PNV no.[id number] 400 mcg-35 mg- 25 mg-5 mg tablet,chewable 1 tab PO Referrals / Follow Up: Care PhysicianKimberlyn Primary [Primary Care Provider] - Disposition Disposition (needs filled in before D/C Order can be placed): Home, Self Care
[2025-01-13] MEDS: Lactated Ringers 1,000 ML 999 ML IV (15:53)
[2025-01-13] MEDS: Sodium Citrate/Citric Acid 30 ML UDC PO (16:19)
[2025-01-13] MEDS: Cefazolin 2 GM in Syringe IV (16:36)
[2025-01-13] MEDS: Oxytocin 15 Units/NS 250ml 15 UNITS/250 ML IV.SOLN 83 UNITS IV (17:55)
[2025-01-13] MEDS: Ketorolac 30 MG/ML Syringe IV ×2 (18:14→23:46)
[2025-01-13] MEDS: Citalopram 40 MG TABLET PO (20:52)
[2025-01-13] MEDS: Lactated Ringers 1,000 ML 100 ML IV (21:02)
[2025-01-14] VITALS (10 sets, daily range): BP systolic 104–131; BP diastolic 57–86; PULSE 61–86; RESP 14–16; TEMP 36.3–36.8; O2SAT 96–100
[2025-01-14] MEDS: Acetaminophen 500 MG Tablet 1000 MG PO ×4 (01:54→20:38)
[2025-01-14] MEDS: Lactated Ringers 1,000 ML 100 ML IV (03:10)
[2025-01-14] MEDS: Enoxaparin 40 MG/0.4 ML Syringe SC (05:10)
[2025-01-14 05:26] LABS: Hematocrit 27.2 % (37-47); Mean Corp Hgb Conc 33.1 g/dL (32-36); Mean Corpuscular Hgb 29.4 pg (27.0-32.0); Mean Corpuscular Volume 88.9 fL (81-99); Mean Platelet Vol. 10.5 fl (6.2-12.0); Platelet Count 191 K/mm3 (150-450); RBC Distribution Width CV 14.9 % (11.6-14.6); RBC Distribution Width SD 47.3 fl (35.1-43.9); Red Blood Count 3.06 M/mm3 (4.2-5.4); White Blood Count 9.9 K/mm3 (4.4-11.0)
--- NOTE | 2025-01-14 10:45 | PCM.PN.CNM ---
Subjective Subjective Patient doing well without complaints. Tolerating PO. Ambulating without difficulty. Feeding well. Denies chest pain, shortness of breath, calf pain/swelling, fevers, chills, lightheadedness. Objective Data Objective Data reese in place draining clear yellow urine. Vital Signs: Vital Signs Temp Pulse Resp BP Pulse Ox O2 Del Method 97.8 F 66 16 116/77 98 Room Air 01/14/25 08:01 01/14/25 08:01 01/14/25 08:01 01/14/25 08:01 01/14/25 08:01 01/14/25 08:01 Oxygen Delivery Method Room Air Weight: 187 lb 6 oz Body Mass Index (BMI) 32.1 Intake & Output: Intake and Output for Last 24 Hours 01/12/25 01/13/25 01/14/25 23:59 23:59 23:59 Intake Total 1270 / 1270 2535.00 / 2535.00 Output Total 800 / 800 525 / 525 Balance 470 / 470 2009.00 / 2009. Lab / Micro Data Attestation: I reviewed the patient's lab results. 01/14/25 05:10 01/13/25 11:25 Labs: Laboratory Results - last 24 hr 01/13/25 11:25: WBC 7.1, RBC 3.26 L, Hgb 9.9 L, Hct 28.8 L, MCV 88.3, MCH 30.4, MCHC 34.4, RDW Std Deviation 46.4 H, RDW Coeff of Ana 14.6, Plt Count 217, MPV 10.8, Creatinine 0.64 L, Est GFR (MDRD) Non-Af 122, Uric Acid 5.2, AST 25, ALT 10 01/13/25 11:30: Syphilis Total Ab Nonreactive, Hep Bs Antibody Nonreactive, Rubella IgG Antibody REAC 01/13/25 11:51: Blood Type A POSITIVE, Antibody Screen NEGATIVE 01/13/25 : U Random Total Protein 28.8 H, Urine Creatinine 193.00, Protein/Creatinin Ratio 149 01/14/25 05:10: WBC 9.9, RBC 3.06 L, Hgb 9.0 L, Hct 27.2 L, MCV 88.9, MCH 29.4, MCHC 33.1, RDW Std Deviation 47.3 H, RDW Coeff of Ana 14.9 H, Plt Count 191, MPV 10.5 Physical Exam Const alert and oriented x3 Lymph Lymphatic: no lymphadenopathy noted Chest inspection of chest normal and inspection of breasts normal Resp normal respiratory effort, normal air movement and clear to auscultation bilaterally Cardio regular rate and regular rhythm GI normal to inspection, nondistended, normoactive bowel sounds Uterus Palpation: uterus fundus firm Extremity normal to inspection, full ROM and no pedal edema Skin Skin Narrative: dressing c/d/i Psych mental status grossly normal Assessment & Plan (1) [facility] (2) Gestational hypertension: COMMENT: pp BP stable (3) History of pulmonary embolism: COMMENT: 2016 after hip surgeryl. plan exp management in and lovenox post csection PLAN: Plan s/p LTCS PPD # 1 1. routine post care 2. breast feeding- support given 3. rh positive 4. rubella immune 5. d/c reese today
[2025-01-14] MEDS: 0.9% Saline Lock 10 ML Syringe IV (13:01)
[2025-01-14] MEDS: Ketorolac 30 MG/ML Syringe IV (13:01)
[2025-01-14] MEDS: Senna/Docusate Sodium 1 Tablet PO (14:16)
[2025-01-14] MEDS: Citalopram 40 MG TABLET PO (20:53)
[2025-01-14] MEDS: Naproxen 500 MG Tablet PO (20:53)
[2025-01-15 02:35] VITALS: BP 127/80; PULSE 62; RESP 16; TEMP 36.6; O2SAT 97
[2025-01-15] MEDS: Acetaminophen 500 MG Tablet 1000 MG PO ×2 (02:36→09:30)
[2025-01-15 02:37] VITALS: BP 127/80; PULSE 62; O2SAT 98
[2025-01-15] MEDS: Naproxen 500 MG Tablet PO (05:11)
[2025-01-15] MEDS: Enoxaparin 40 MG/0.4 ML Syringe SC (05:11)
[2025-01-15 09:22] VITALS: BP 131/81; PULSE 76; RESP 16; TEMP 36.6; O2SAT 97
[2025-01-15 09:23] VITALS: BP 131/81; PULSE 76
--- NOTE | 2025-01-15 10:38 | PN.OBGYN_ITS ---
Subjective Subjective Patient doing well without complaints. Tolerating PO. Ambulating and voiding without difficulty. Feeding well. Denies chest pain, shortness of breath, calf pain/swelling, fevers, chills, lightheadedness. Objective Data Objective Data Vital Signs: Vital Signs Temp Pulse Resp BP Pulse Ox O2 Del Method 97.8 F 76 16 131/81 H 97 Room Air 01/15/25 09:22 01/15/25 09:23 01/15/25 09:22 01/15/25 09:23 01/15/25 09:22 01/15/25 09:22 Oxygen Delivery Method Room Air Weight: 187 lb 6 oz Body Mass Index (BMI) 32.1 Intake & Output: Intake and Output for Last 24 Hours 01/13/25 01/14/25 01/15/25 23:59 23:59 23:59 Intake Total 1270 / 1270 2535.00 / 2535.00 Output Total 800 / 800 1275 / 1275 Balance 470 / 470 1260.00 / 1260.00 Lab / Micro Data 01/14/25 05:10 01/13/25 11:25 Physical Exam Const alert and oriented x3 Lymph Lymphatic: no lymphadenopathy noted Chest inspection of chest normal and inspection of breasts normal Resp normal respiratory effort, normal air movement and clear to auscultation bilaterally Cardio regular rate and regular rhythm GI normal to inspection, nondistended, normoactive bowel sounds Uterus Palpation: uterus fundus firm Extremity normal to inspection, full ROM and no pedal edema Skin Skin Narrative: dressing c/d/i Psych mental status grossly normal Assessment & Plan (1) [facility] [place] (2) Gestational hypertension: COMMENT: pp BP stable (3) History of pulmonary embolism: COMMENT: 2016 after hip surgeryl. plan exp management in and lovenox post csection PLAN: Plan s/p LTCS PPD # 2 1. routine post care 2. breast feeding- support given 3. rh positive 4. rubella immune 5. d/c home today
--- NOTE | 2025-01-15 10:39 | PCM.DC.SUM ---
Providers Date of Admission: 01/13/25 Primary Care Physician: No Primary Care Phys Reason For Visit: REPEAT C SECTION Diagnosis Discharge Diagnosis (1) delivery delivered: Status: Acute Code(s): O82 - Encounter for delivery without indication (2) Gestational hypertension: Status: Acute Code(s): O13.9 - Gestational [-induced] hypertension without significant proteinuria, unspecified trimester (3) History of pulmonary embolism: Status: Acute Code(s): Z86.711 - Personal history of pulmonary embolism Plan s/p LTCS PPD # 2 1. routine post care 2. breast feeding- support given 3. rh positive 4. rubella immune 5. d/c home today Medications at Discharge Home Medications PNV 153-FA 400 mcg-om3 35 mg-dha 25 mg-epa 5 mg-fish oil chew tablet 1 tab PO 06/10/24 citalopram 40 mg tablet 40 mg PO DAILY anxiety #60 tabs 06/10/24 enoxaparin 40 mg/0.4 mL subcutaneous syringe (Lovenox) 40 mg (0.4 mL) subcut DAILY 6 weeks #16.8 mL 01/13/25 naproxen 500 mg tablet 500 mg PO BID PRN PRN Pain #30 tabs 01/13/25 oxycodone-acetaminophen 5 mg-325 mg tablet (Percocet) 1 tab PO Q4H PRN pain 7 days #20 tabs 01/13/25 Hospital Course Operations section Procedures None Summary of Care Provided Hospital Course: at 37.3 weeks with repeat c/s. normal pp course Physical Exam Const alert and oriented x3 Lymph Lymphatic: no lymphadenopathy noted Chest inspection of chest normal and inspection of breasts normal Resp normal respiratory effort, normal air movement and clear to auscultation bilaterally Cardio regular rate and regular rhythm GI normal to inspection, nondistended, normoactive bowel sounds Uterus Palpation: uterus fundus firm Extremity normal to inspection, full ROM and no pedal edema Skin Skin Narrative: dressing c/d/i Psych mental status grossly normal Weight / BMI Weight Weight: 187 lb 6 oz Body Mass Index (BMI) 32.1 ABG / Lab / Microbiology Data 01/14/25 05:10 01/13/25 11:25 D/C Instructions Discharge Diet: No restrictions May shower in (days): 0 May resume sexual activity in: 4-6 weeks Weight Bearing Status: Full weight bearing Call your doctor if your incision/area has: Continuous Slow Oozing, Sudden Increased Bleeding, Increased Pain/ Swelling, Increased Redness and Foul Smelling Discharge Call your doctor if you observe: Fever of 101 or Higher and Using more than 1 pad per hour (for 2 hours) Suture Line Care: Avoid Pulling/Pushing and Avoid Pinching/Bending Cleanse incision/area with: Soap & Water and Keep Dressing Clean & Dry DC O2, CPAP, BIPAP Needs Home O2 Discharge instructions: No Please Follow Up With: Susana Valencia MD When: Call [phone] to make an appointment for an incision check in 1-2 weeks. Meaningful Use Info Meaningful Use Meaningful Use Diagnoses (Choose all that apply): None applicable Ischemic Stroke Statin Dosing Therapy Reference: STATIN DOSE THERAPY REFERENCE: * Patients > 75 years receive moderate or high dose statin therapy. * Patients 75 years or YOUNGER should receive HIGH intensity statin dose unless contraindicated. You will be required to document reason for non-treatment if statin daily dose does not meet guidelines. HIGH DOSE STATIN THERAPY DAILY Atorvastatin > than or = to 40 mg Rosuvastatin > than or = to 20 mg Amlodipine + Atorvastatin > than or = to 2.5/40 mg Ezetimibe + Simvastatin 10/80 mg Simvastatin 80mg Discharge Plan Admission Admit Date/Time: 01/13/25 11:50 Attending Provider: Susana Valencia Primary Care Provider: Care Physician,Kimberlyn Primary Discharge Orders/Prescriptions Prescriptions: New oxycodone-acetaminophen [Percocet] 5-325 mg tablet 1 tab PO Q4H PRN (Reason: pain) 7 Days Qty: 20 0RF naproxen 500 mg tablet 500 mg PO BID PRN PRN (Reason: Pain) Qty: 30 1RF enoxaparin [Lovenox] 40 mg/0.4 mL syringe 40 mg subcut DAILY 42 Days Qty: 16.8 1RF Continued citalopram 40 mg tablet 40 mg PO DAILY Qty: 60 3RF No Action PNV no.[id number] 400 mcg-35 mg- 25 mg-5 mg tablet,chewable 1 tab PO Referrals / Follow Up: Care Physician,No Primary [Primary Care Provider] - Disposition Disposition (needs filled in before D/C Order can be placed): Home, Self Care
--- NOTE | 2025-01-20 10:06 | NURSING ---
Follow up phone call: patient reports she is doing well, walking a little better each day. Patient states her incision looks good, no signs of infection. Her bleeding is a little better maybe the same. CBS encouraged her to keep a close eye on the bleeding, if it isn't getting better or at all worse and signs of clots to reach out to her provider right away. Patient voiced understanding. Infant is doing well, feeding well and having good amounts of output. Patient states she was satisfied with her care.
--- NOTE | 2025-01-20 18:13 | CASEMGMT ---
Social Work Received handoff from weekend social economist who indicated patient/mother of baby (MOB) was discharged prior to being seen by social work. SW consult in due to maternal history of depression and anxiety after first baby. Called MOB at home, who answered the phone and indicated it was an okay time to talk. MOB reports things have been going well so far. Baby is eating and sleeping okay. MOB reports to be on medication for depression/anxiety, and this seems to be helping MOB. MOB acknowledge history fo some anxiety after of first son, who is now 6 (Ajay 4..2019). MOB reports also saw a therapist during that time, and if needed would be willing to go back to same therapist if needed. MOB reports to have a good support from family, who are aware of MOB's anxiety and are able to talk with MOB if they see signs of MOB in distress. MOB denies any needs for resources at this time. MOB thanked social economist for call and checking in. No other services requested or indicated. -Rahel LAM
== END 2025-01-15 12:05 | disposition home or self-care (01) | DRG 788 ==
LOC: BWCLAB 11:58 → WP 11:58
PROVIDERS: Advanced Practice Midwife; Admitting Provider Obstetrics & Gynecology; Referring Provider Obstetrics & Gynecology; Visit Provider Obstetrics & Gynecology
DX: O13.4 Gestational [pregnancy-induced] hypertension without significant proteinuria, complicating childbirth (principal); B95.1 Streptococcus, group B, as the cause of diseases classified elsewhere; F32.A Depression, unspecified; F41.9 Anxiety disorder, unspecified; O34.211 Maternal care for low transverse scar from previous cesarean delivery; O99.344 Other mental disorders complicating childbirth; Z3A.37 37 weeks gestation of pregnancy; Z37.0 Single live birth; O99.02 Anemia complicating childbirth; Z79.899 Other long term (current) drug therapy; Z86.711 Personal history of pulmonary embolism; Z87.59 Personal history of other complications of pregnancy, childbirth and the puerperium
CPT/HCPCS: 36415; 82565; 82570; 84156; 84450; 84460; 84550; 85027; 86706; 86762; 86780; 86850; 86900; 86901; 99221; A4216; G0378; J2405

== ENCOUNTER 2025-01-20 21:50 | Inpatient (IN) | payer OTHER, SELFPAY ==
[2025-01-20] VITALS (30 sets, daily range): BP systolic 149–187; BP diastolic 91–115; PULSE 60–84; RESP 14–16; TEMP 36.4–36.6; O2SAT 93–97; BMI 29.3
[2025-01-20 21:40] LABS: Absolute Lymphocyte Count 1.74 X10^3/uL (0.83-4.51); Absolute Neutrophil Count 3.8 X10^3/uL (2.0-7.7); Basophil# 0.03 X10^3/uL; Basophil% 0.5 % (0-1); Eosinophils% 3.2 % (0-5); Hematocrit 29.3 % (37-47); Hemoglobin 9.6 g/dL (12.0-15.0); Lymphocyte # 1.74 X10^3/ul (0.83-4.51); Lymphocyte % 27.5 % (19-41); Mean Corp Hgb Conc 32.8 g/dL (32-36); Mean Corpuscular Hgb 29.2 pg (27.0-32.0); Mean Corpuscular Volume 89.1 fL (81-99); Mean Platelet Vol. 9.7 fl (6.2-12.0); Monocyte# 0.52 X10^3/uL; Monocyte% 8.2 % (0-10); NRBC Flagged by Analyzer 0 % (0-5); Neutrophil % 60.1 % (47-70); Platelet Count 307 K/mm3 (150-450); RBC Distribution Width CV 15.3 % (11.6-14.6); RBC Distribution Width SD 48.7 fl (35.1-43.9); Red Blood Count 3.29 M/mm3 (4.2-5.4); White Blood Count 6.3 K/mm3 (4.4-11.0)
[2025-01-20] MEDS: Magnesium Sulfate 4gm/100mL 4 GM/100 ML IV.SOLN. IV (22:06)
[2025-01-20] MEDS: NIFEdipine 30 MG Tablet PO (22:15)
[2025-01-20] MEDS: Citalopram 40 MG TABLET PO (22:15)
[2025-01-20 22:17] LABS: ALB/GLOB Ratio 1.1 RATIO (0.9-2.4); AST(SGOT) 24 U/L (<=31); Alanine Aminotransfer ALT/SGPT 33 U/L (<=34); Albumin, Serum 3.4 g/dL (3.5-5.0); Alkaline Phosphatase 139 U/L (35-104); Anion Gap 13 (5-15); BUN 16 mg/dL (4-19); BUN/Creat Ratio 21.7 RATIO (10-20); Calcium,Total 8.8 mg/dL (7.6-11.0); Carbon Dioxide 20.7 mmol/L (21.0-32.0); Chloride 106 mmol/L (98-108); Creatinine, Serum 0.75 mg/dL (0.70-1.20); EST Glomerular Filtration Rate 110 (>60); Estimated Creatinine Clearance 110.55 ml/min (50-250); Globulin 3.1 g/dL (2.2-4.2); Glucose 91 mg/dL (70-99); Potassium 3.9 mmol/L (3.3-5.1); Protein, Total 6.5 g/dL (5.9-8.4); Sodium Level 139 mmol/L (133-145); Total Bilirubin 0.23 mg/dL (0.00-1.30)
[2025-01-20] MEDS: Magnesium Sulfate 20 GM/500 ML BAG IV (22:25)
[2025-01-20] MEDS: Labetalol 200 MG Tablet PO (23:12)
[2025-01-21] VITALS (23 sets, daily range): BP systolic 103–152; BP diastolic 62–104; PULSE 71–92; RESP 14–18; TEMP 36.4–37.6; O2SAT 92–99
--- NOTE | 2025-01-21 00:32 | PCM.HP.OB ---
HPI - General General Date of Admission: 01/20/25 HPI Narrative JOSEPH CREWS, is a 29 y/o who presents to L&D for headache and high blood pressure in the range of 180/100.She is status post section is Dr. Valencia a week ago. The blood pressure was recorded by a neighbor who is a nurse. Upon arrival her blood pressure was confirmed to be in severe range. Hypertensive protocol was ordered as well as PIH labs and magnesium sulfate. She is currently resting but states that she feels anxious and is tearful. She denies visual changes or epigastric pain. she declines ambien, vistaril, etc. [facility] Medical History (Updated 01/21/25 @ 00:[address] Yojana Tripathi, DO) Pre-eclampsia Menorrhagia with regular cycle Personal history of pulmonary embolism Home Medications ?Medication ?Instructions ?Recorded ?Last Taken ?Type citalopram 40 mg tablet 40 mg PO DAILY anxiety #60 tabs 06/10/24 01/19/25 Rx enoxaparin 40 mg/0.4 mL 40 mg (0.4 mL) subcut DAILY 6 01/13/25 01/20/25 Rx subcutaneous syringe (Lovenox) weeks #16.8 mL naproxen 500 mg tablet 500 mg PO BID PRN PRN Pain #30 tabs 01/13/25 01/20/25 Rx oxycodone-acetaminophen 5 mg-325 1 tab PO Q4H PRN pain 7 days #20 01/13/25 Unknown Rx mg tablet (Percocet) tabs Allergy/AdvReac Type Severity Reaction Status Date / Time No Known Allergies Allergy Verified 01/13/25 12:27 Family History Grandfather Diabetes Surgical History (Updated 01/21/25 @ 00:05 by Lamine Ambriz) H/O dilation and curettage H/O: History of hip surgery Social History adopted: No household members: spouse and children number of children: 1 current occupational status: employed current occupation: teacher pets and animals: Yes pets and animals: dog(s) history of recent travel: Yes ([place], [place]) out of state: Yes out of country: No sexually active: Yes Smoking Status: Never smoker alcohol intake: never substance use type: does not use well-balanced diet: daily or most days caffeine: Yes (Not daily) Type: coffee Number of servings: 1 eating out: 1-3 times/week during the past year weight has: increased > 10 lbs what type of physical activity do you participate in: walking and swimming frequency: 3-4 times per week duration: 45-60 minutes/day gerardo/advent: [employer] seatbelt use: always do you feel safe at home: Yes additional social history: [place] Patient is a a teacher [place] History 3 Elective abortions Hx Para 2 Spontaneous abortions 1 Hx # Term Pregnancies Ectopic pregnancies Hx # Pregnancies Multiple births # of living children 2 Past Pregnancies Del. Date Name GA/Weeks Outcome Route Bth Weight Gen Labor Lgth Anesthesia Del Locatn Provider FOB 02/18/19 Ajay 40 live - full term 7lbs 1oz Male spinal [facility] 11/26/20 Missed AB 9 [facility] 01/13/25 Telly 37 live - full term Male spinal [facility] Susana Valencia Delivery Date: 02/18/19 Last Updated by: Shanda aBrros Face presentation, cord around neck x1 Delivery Date: 11/26/20 Last Updated by: Frances De La O suction D&C Delivery Date: 01/13/25 Last Updated by: Mely Cast rltcs 37 tn . ROS Constitutional Constitutional: Denies change in weight, fatigue, fever(s), poor appetite or weakness Eyes Eyes: Denies blurry vision, change in vision, seeing flashes or spots in vision ENT HEENT: Denies dizziness, loss taste/smell or sore throat Cardiovascular Cardiovascular: Denies chest pain, dizziness, dyspnea, irregular heart rhythm, leg edema, palpitations, rapid heart rate or vomiting Respiratory/Chest Respiratory/Chest: Denies chest tightness, cough, dyspnea or breast pain Gastrointestinal Gastrointestinal: Denies abdominal pain, anorexia, constipation, cramping, diarrhea, hemorrhoids, vomiting or weight changes Genitourinary Genitourinary: Denies dysuria, flank pain, genital lesions, genital pain, urinary frequency or urinary urgency Musculoskeletal Musculoskeletal: Denies back pain, difficulty walking, joint pain, limited range of motion, muscle cramps or numbness Integumentary Integumentary: Denies lesions or unusual bruising Neurologic Neurologic: Denies abnormal movements, abnormal speech, dizziness, numbness, seizure-like activity or syncope Psychiatric Psychiatric: Denies anxiety, behavioral changes, change in appetite, cognitive impairment, confusion, depression or difficulty concentrating Endocrine Endocrinology: Denies excessive sweating, polydipsia or polyuria Hematologic/Lymphatic Hematologic/Lymphatic: Denies easy bleeding, easy bruising or lymphadenopathy Vital Signs Vital Signs Vital Signs: 01/20/25 21:31 01/20/25 21:31 01/20/25 21:47 Temperature Temperature Source Pulse Rate 60 Respiratory Rate Respiratory Effort Respiratory Depth Respiratory Pattern Blood Pressure 187/108 H 176/114 H Blood Pressure Mean BP Systolic 187 176 BP Diastolic 108 114 Blood Pressure Source Blood Pressure Position Blood Pressure Location Pulse Ox Oxygen Delivery Method 01/20/25 21:47 01/20/25 22:02 01/20/25 22:02 Temperature Temperature Source Pulse Rate 60 66 Respiratory Rate Respiratory Effort Respiratory Depth Respiratory Pattern Blood Pressure 187/115 H Blood Pressure Mean BP Systolic 187 BP Diastolic 115 Blood Pressure Source Blood Pressure Position Blood Pressure Location Pulse Ox Oxygen Delivery Method 01/20/25 22:15 01/20/25 22:15 01/20/25 22:19 Temperature Temperature Source Pulse Rate 76 79 Respiratory Rate Respiratory Effort Respiratory Depth Respiratory Pattern Blood Pressure 163/91 H Blood Pressure Mean BP Systolic 163 BP Diastolic 91 Blood Pressure Source Blood Pressure Position Blood Pressure Location Pulse Ox Oxygen Delivery Method 01/20/25 22:19 01/20/25 22:24 01/20/25 22:24 Temperature Temperature Source Pulse Rate 71 Respiratory Rate Respiratory Effort Respiratory Depth Respiratory Pattern Blood Pressure Blood Pressure Mean BP Systolic BP Diastolic Blood Pressure Source Blood Pressure Position Blood Pressure Location Pulse Ox 93 93 Oxygen Delivery Method 01/20/25 22:25 01/20/25 22:25 01/20/25 22:29 Temperature 97.6 F L Temperature Source Temporal Temporal Pulse Rate 81 84 Respiratory Rate 14 Respiratory Effort Normal Respiratory Depth Normal Respiratory Pattern Normal Blood Pressure 163/91 H Blood Pressure Mean 115 BP Systolic BP Diastolic Blood Pressure Source Monitor Blood Pressure Position Semi-Fowlers Blood Pressure Location Left Arm Pulse Ox 96 Oxygen Delivery Method Room Air 01/20/25 22:29 01/20/25 22:32 01/20/25 22:32 Temperature Temperature Source Pulse Rate 74 Respiratory Rate Respiratory Effort Respiratory Depth Respiratory Pattern Blood Pressure 167/93 H Blood Pressure Mean BP Systolic 167 BP Diastolic 93 Blood Pressure Source Blood Pressure Position Blood Pressure Location Pulse Ox 97 Oxygen Delivery Method 01/20/25 22:34 01/20/25 22:34 01/20/25 22:39 Temperature Temperature Source Pulse Rate 74 81 Respiratory Rate Respiratory Effort Respiratory Depth Respiratory Pattern Blood Pressure Blood Pressure Mean BP Systolic BP Diastolic Blood Pressure Source Blood Pressure Position Blood Pressure Location Pulse Ox 96 Oxygen Delivery Method 01/20/25 22:39 01/20/25 22:39 01/20/25 22:39 Temperature Temperature Source Pulse Rate 70 Respiratory Rate Respiratory Effort Respiratory Depth Respiratory Pattern Blood Pressure Blood Pressure Mean BP Systolic BP Diastolic Blood Pressure Source Blood Pressure Position Blood Pressure Location Pulse Ox 94 94 Oxygen Delivery Method 01/20/25 22:40 01/20/25 22:42 01/20/25 22:42 Temperature Temperature Source Pulse Rate 68 Respiratory Rate Respiratory Effort Normal Respiratory Depth Normal Respiratory Pattern Normal Blood Pressure 155/91 H Blood Pressure Mean BP Systolic 155 BP Diastolic 91 Blood Pressure Source Blood Pressure Position Blood Pressure Location Pulse Ox Oxygen Delivery Method 01/20/25 22:44 01/20/25 22:44 01/20/25 22:44 Temperature Temperature Source Pulse Rate 80 80 Respiratory Rate Respiratory Effort Respiratory Depth Respiratory Pattern Blood Pressure Blood Pressure Mean BP Systolic BP Diastolic Blood Pressure Source Blood Pressure Position Blood Pressure Location Pulse Ox 94 Oxygen Delivery Method 01/20/25 22:44 01/20/25 22:49 01/20/25 22:49 Temperature Temperature Source Pulse Rate 70 Respiratory Rate Respiratory Effort Respiratory Depth Respiratory Pattern Blood Pressure Blood Pressure Mean BP Systolic BP Diastolic Blood Pressure Source Blood Pressure Position Blood Pressure Location Pulse Ox 96 94 Oxygen Delivery Method 01/20/25 22:52 01/20/25 22:52 01/20/25 22:54 Temperature Temperature Source Pulse Rate 67 73 Respiratory Rate Respiratory Effort Respiratory Depth Respiratory Pattern Blood Pressure 154/92 H Blood Pressure Mean BP Systolic 154 BP Diastolic 92 Blood Pressure Source Blood Pressure Position Blood Pressure Location Pulse Ox Oxygen Delivery Method 01/20/25 22:54 01/20/25 22:55 01/20/25 22:59 Temperature Temperature Source Pulse Rate 70 Respiratory Rate Respiratory Effort Normal Respiratory Depth Normal Respiratory Pattern Normal Blood Pressure Blood Pressure Mean BP Systolic BP Diastolic Blood Pressure Source Blood Pressure Position Blood Pressure Location Pulse Ox 97 Oxygen Delivery Method 01/20/25 22:59 01/20/25 23:02 01/20/25 23:02 Temperature Temperature Source Pulse Rate 64 Respiratory Rate Respiratory Effort Respiratory Depth Respiratory Pattern Blood Pressure 155/94 H Blood Pressure Mean BP Systolic 155 BP Diastolic 94 Blood Pressure Source Blood Pressure Position Blood Pressure Location Pulse Ox 94 Oxygen Delivery Method 01/20/25 23:04 01/20/25 23:04 01/20/25 23:05 Temperature Temperature Source Pulse Rate 70 Respiratory Rate Respiratory Effort Normal Respiratory Depth Normal Respiratory Pattern Normal Blood Pressure Blood Pressure Mean BP Systolic BP Diastolic Blood Pressure Source Blood Pressure Position Blood Pressure Location Pulse Ox 97 Oxygen Delivery Method 01/20/25 23:07 01/20/25 23:07 01/20/25 23:09 Temperature Temperature Source Pulse Rate 68 71 Respiratory Rate Respiratory Effort Respiratory Depth Respiratory Pattern Blood Pressure Blood Pressure Mean BP Systolic BP Diastolic Blood Pressure Source Blood Pressure Position Blood Pressure Location Pulse Ox 94 Oxygen Delivery Method 01/20/25 23:09 01/20/25 23:12 01/20/25 23:12 Temperature Temperature Source Pulse Rate 68 Respiratory Rate Respiratory Effort Respiratory Depth Respiratory Pattern Blood Pressure 150/94 H Blood Pressure Mean BP Systolic 150 BP Diastolic 94 Blood Pressure Source Blood Pressure Position Blood Pressure Location Pulse Ox 97 Oxygen Delivery Method 01/20/25 23:12 01/20/25 23:20 01/20/25 23:21 Temperature Temperature Source Pulse Rate 72 74 Respiratory Rate 14 16 Respiratory Effort Normal Respiratory Depth Normal Respiratory Pattern Normal Blood Pressure 152/95 H Blood Pressure Mean 114 BP Systolic BP Diastolic Blood Pressure Source Blood Pressure Position Blood Pressure Location Pulse Ox 96 Oxygen Delivery Method Room Air 01/20/25 23:21 01/20/25 23:22 01/20/25 23:22 Temperature Temperature Source Pulse Rate 71 Respiratory Rate Respiratory Effort Respiratory Depth Respiratory Pattern Blood Pressure 152/95 H Blood Pressure Mean BP Systolic 152 BP Diastolic 95 Blood Pressure Source Blood Pressure Position Blood Pressure Location Pulse Ox 97 Oxygen Delivery Method 01/20/25 23:22 01/20/25 23:26 01/20/25 23:26 Temperature Temperature Source Pulse Rate 78 Respiratory Rate 16 Respiratory Effort Respiratory Depth Respiratory Pattern Blood Pressure Blood Pressure Mean BP Systolic BP Diastolic Blood Pressure Source Blood Pressure Position Blood Pressure Location Pulse Ox 95 Oxygen Delivery Method 01/20/25 23:31 01/20/25 23:31 01/20/25 23:32 Temperature Temperature Source Pulse Rate 71 Respiratory Rate Respiratory Effort Respiratory Depth Respiratory Pattern Blood Pressure 149/95 H Blood Pressure Mean BP Systolic 149 BP Diastolic 95 Blood Pressure Source Blood Pressure Position Blood Pressure Location Pulse Ox 96 Oxygen Delivery Method 01/20/25 23:32 01/20/25 23:36 01/20/25 23:36 Temperature Temperature Source Pulse Rate 67 74 Respiratory Rate Respiratory Effort Respiratory Depth Respiratory Pattern Blood Pressure Blood Pressure Mean BP Systolic BP Diastolic Blood Pressure Source Blood Pressure Position Blood Pressure Location Pulse Ox 95 Oxygen Delivery Method 01/20/25 23:45 01/20/25 23:45 01/21/25 00:15 Temperature 97.8 F Temperature Source Temporal Temporal Temporal Pulse Rate 71 Respiratory Rate 16 Respiratory Effort Normal Respiratory Depth Normal Respiratory Pattern Normal Blood Pressure 149/95 H Blood Pressure Mean 113 BP Systolic BP Diastolic Blood Pressure Source Monitor Blood Pressure Position Semi-Fowlers Blood Pressure Location Left Arm Pulse Ox 96 Oxygen Delivery Method Room Air 01/21/25 00:15 Temperature 97.6 F L Temperature Source Temporal Pulse Rate 85 Respiratory Rate 16 Respiratory Effort Normal Respiratory Depth Normal Respiratory Pattern Normal Blood Pressure 137/90 H Blood Pressure Mean 105 BP Systolic BP Diastolic Blood Pressure Source Monitor Blood Pressure Position Semi-Fowlers Blood Pressure Location Left Arm Pulse Ox 99 Oxygen Delivery Method Room Air Weight Weight: 171 lb Body Mass Index (BMI) 29.3 Physical Exam Const alert, oriented x3, no apparent distress and healthy appearing General Appearance: cooperative; Negative for anxious HEENT normocephalic Face and Sinus: normal facial exam Eyes EOMs intact bilaterally and no scleral icterus General Eye: normal appearance of both eyes Neck full ROM and supple Lymph Lymphatic: no lymphadenopathy noted Chest Chest: abnormal inspection of the chest Resp normal respiratory effort Effort and Inspection: able to speak in complete sentences Cardio regular rate GI soft to palpation and non-tender Back/Spine no CVA tenderness Extremity normal to inspection, full ROM and no clubbing, cyanosis or edema General Extremity: Negative for calf tenderness or edema Skin Lesions: no lesions Rashes: no rashes Psych mental status grossly normal Labs Labs Labs: Blood Type A POSITIVE Antibody Screen NEGATIVE Hct 29.3 % (37-47) L Hgb 9.6 g/dL (12.0-15.0) L Pap Smear Negative Syphilis Total Ab Nonreactive (Nonreactive) Rubella IgG Antibody REAC (Nonreactive) Hep Bs Antigen Negative (Negative) Hepatitis C Ab (EIA) Non Reactive (Non Reactive) Chlamydia DNA (COLLEEN) Negative (Negative) N.gonorrhoeae DNA (COLLEEN) Negative (Negative) HIV 1&2 Antibody Non-Reactive (Nonreactive) Glucose 1 Hr 50 gm 153 mg/dL (70-140) H Gest Glucose Tolerance MG/DL Rhogam given: No Assessment & Plan (1) Pre-eclampsia, : (2) delivery delivered: COMMENT: EDWARDS GHTN PLAN: Plan plan for magnesium sulfate labetalol hypertensive protocol IV therapy now. procardia 30 mg xl now when stable on IV medication, protocol is to bridge to PO labetalol ambien 5 mg po as needed for insomnia regular diet fluid restriction to no more than 300cc/hr.
[2025-01-21] MEDS: Acetaminophen 500 MG Tablet 1000 MG PO ×2 (06:49→14:19)
[2025-01-21] MEDS: Magnesium Sulfate 20 GM/500 ML BAG IV (08:29)
--- NOTE | 2025-01-21 09:38 | PN.OBGYN_ITS ---
Subjective Subjective Patient is laying in bed comfortably without complaints. She states that she slept on an off during the night. Headache is mild. Blood pressures since 1 am have been low/normal. Objective Data Objective Data Vital Signs: Vital Signs Temp Pulse Resp BP Pulse Ox O2 Del Method 99.2 F H 77 16 111/75 95 Room Air 01/21/25 09:00 01/21/25 09:00 01/21/25 09:00 01/21/25 09:00 01/21/25 09:00 01/21/25 09:00 Oxygen Delivery Method Room Air Weight: 171 lb Body Mass Index (BMI) 29.3 Intake & Output: Intake and Output for Last 24 Hours 01/19/25 01/20/25 01/21/25 23:59 23:59 23:59 Intake Total 350 / 350 800 / 800 Output Total 300 / 300 600 / 600 Balance 50 / 50 200 / 200 Lab / Micro Data 01/20/25 21:30 01/20/25 21:30 Labs: Laboratory Results - last 24 hr 01/20/25 21:30: WBC 6.3, RBC 3.29 L, Hgb 9.6 L, Hct 29.3 L, MCV 89.1, MCH 29.2, MCHC 32.8, RDW Std Deviation 48.7 H, RDW Coeff of Ana 15.3 H, Plt Count 307, MPV 9.7, Immature Gran % (Auto) 0.500, Neut % (Auto) 60.1, Lymph % (Auto) 27.5, [place] % (Auto) 8.2, Eos % (Auto) 3.2, Baso % (Auto) 0.5, Absolute Neuts (auto) 3.8, Absolute Lymphs (auto) 1.74, Nucleated RBC % 0, Sodium 139, Potassium 3.9, Chloride 106, Carbon Dioxide 20.7 L, Anion Gap 13, BUN 16, Creatinine 0.75, Estim Creat Clear Calc 110.55, Est GFR (MDRD) Non-Af 110, BUN/Creatinine Ratio 21.7 H, Glucose 91, Calcium 8.8, Total Bilirubin 0.23, AST 24, ALT 33, Alkaline Phosphatase 139 H, Total Protein 6.5, Albumin 3.4 L, Globulin 3.1, Albumin/Globulin Ratio 1.1 ROS Constitutional Constitutional: Reports systems reviewed and no addt'l complaints, except as documented Cardiovascular Cardiovascular: Denies chest pain, dizziness, dyspnea or irregular heart rhythm Respiratory/Chest Respiratory/Chest: Denies cough, pain on inspiration or shortness of breath at rest Gastrointestinal Gastrointestinal: Denies abdominal pain, nausea or vomiting Genitourinary Genitourinary: Denies burning urination Musculoskeletal Musculoskeletal: Denies muscle cramps, muscle spasms or muscle weakness Neurologic Neurologic: Denies confusion, dizziness, headache(s) or lack of coordination Psychiatric Psychiatric: Denies anxiety, behavioral changes or depression Physical Exam HEENT normocephalic Resp normal respiratory effort and normal air movement GI soft to palpation, non-tender and non-distended Rectal Exam: other Other Details: Incision is clean, dry, and intact no CVA tenderness Extremity normal to inspection General Extremity: edema bilateral (trace ) Assessment & Plan (1) Pre-eclampsia, : (2) delivery delivered: COMMENT: COLTON K[place] GHTN PLAN: Plan plan to half the dose of magnesium sulfate and hold procardia and first dose of labetalol this am. continue monitoring this morning and will decide to turn off magnesium if bp remains low/normal. Plan is to dc to home tonight if all day blood pressures remain stable. Charges/Coding Visit Charges Inpatient E&M: 71002 Subs Hosp L3
[2025-01-21] MEDS: Enoxaparin 40 MG/0.4 ML Syringe SC (11:06)
[2025-01-21] MEDS: Labetalol 200 MG Tablet PO (16:40)
[2025-01-21] MEDS: NIFEdipine 30 MG Tablet PO (19:27)
[2025-01-21] MEDS: Ibuprofen 600 MG Tablet PO (19:27)
[2025-01-21] MEDS: Labetalol 100 MG Tablet PO (20:43)
[2025-01-21] MEDS: Citalopram 40 MG TABLET PO (22:18)
[2025-01-22 00:38] VITALS: BP 144/90; PULSE 71; RESP 16; TEMP 37.4
[2025-01-22] MEDS: Labetalol 200 MG Tablet 300 MG PO ×2 (00:40→07:29)
[2025-01-22 04:40] VITALS: BP 126/79; PULSE 81; RESP 16; TEMP 37; O2SAT 98
--- NOTE | 2025-01-22 05:00 | NURSING ---
Report received from Georgette SMALL, taking over pt care at this time.
[2025-01-22 07:27] VITALS: BP 139/81; PULSE 70; RESP 16; TEMP 37.1
[2025-01-22 09:20] VITALS: BP 131/83; PULSE 74
[2025-01-22] MEDS: Enoxaparin 40 MG/0.4 ML Syringe SC (10:31)
--- NOTE | 2025-01-22 10:34 | PCM.PN.OB ---
Subjective Subjective Patient doing well without complaints. Tolerating PO. Ambulating and voiding without difficulty. Feeding well. Denies chest pain, shortness of breath, calf pain/swelling, fevers, chills, lightheadedness. headache is gone now. She wants to go home. Objective Data Objective Data Vital Signs: Vital Signs Temp Pulse Resp BP Pulse Ox O2 Del Method 98.8 F 74 16 131/83 H 98 Room Air 01/22/25 07:27 01/22/25 09:20 01/22/25 07:27 01/22/25 09:20 01/22/25 04:40 01/22/25 04:40 Oxygen Delivery Method Room Air Weight: 171 lb Body Mass Index (BMI) 29.3 Intake & Output: Intake and Output for Last 24 Hours 01/20/25 01/21/25 01/22/25 23:59 23:59 23:59 Intake Total 350 / 350 1423.75 / 1423.75 0 / 0 Output Total 300 / 300 800 / 800 Balance 50 / 50 623.75 / 623.75 0 / 0 Lab / Micro Data 01/20/25 21:30 01/20/25 21:30 Micro: Microbiology 01/21/25 19:30 Mucosa - Nose SARS-CoV-2, Influenza & RSV (PCR) - Final ROS Constitutional Constitutional: Denies chills, fatigue, fever(s), poor appetite or weakness Eyes Eyes: Denies blurry vision, change in vision, seeing flashes or spots in vision ENT HEENT: Denies dizziness, headache(s), loss taste/smell or sore throat Cardiovascular Cardiovascular: Denies chest pain, dizziness, dyspnea, irregular heart rhythm, palpitations or rapid heart rate Respiratory/Chest Respiratory/Chest: Denies chest tightness, cough, dyspnea or breast pain Gastrointestinal Gastrointestinal: Denies abdominal pain, constipation or vomiting Genitourinary Genitourinary: Denies dysuria or flank pain Musculoskeletal Musculoskeletal: Denies difficulty walking, joint pain, limited range of motion or numbness Neurologic Neurologic: Denies abnormal movements, abnormal speech, dizziness, numbness, seizure-like activity or syncope Psychiatric Psychiatric: Denies anxiety, behavioral changes, change in appetite, confusion, depression or suicidal thoughts Physical Exam Const alert, oriented x3 and no apparent distress General Appearance: cooperative and comfortable Resp normal respiratory effort Cardio regular rate GI normal to inspection, nondistended, normoactive bowel sounds GI Narrative: uterus is firm below umbilicus Palpation: soft Back/Spine no CVA tenderness and thoraco-lumbar ROM normal Extremity normal to inspection, no clubbing, cyanosis or edema, no calf tenderness and no pedal edema Psych mental status grossly normal, thought process normal, cooperative, affect normal, speech normal, activity/motor behavior normal, denies homicidal ideation and denies suicidal ideation Assessment & Plan (1) Pre-eclampsia, : (2) delivery delivered: COMMENT: [facility] GHTN PLAN: Plan plan to dc to home with labetalol 300 tid + procardia 60 xl daily follow up with on Thursday states has a neighbor who is a retired nurse and will come to her house daily for bp checks.
[2025-01-22 14:22] VITALS: BP 104/57; PULSE 72
== END 2025-01-22 10:50 | disposition home or self-care (01) | DRG 776 ==
LOC: WPOUT 21:59 → WP 21:59
PROVIDERS: Admitting Provider Obstetrics & Gynecology; Referring Provider Obstetrics & Gynecology; Visit Provider Obstetrics & Gynecology
DX: O14.15 Severe pre-eclampsia, complicating the puerperium (principal); Z3A.37 37 weeks gestation of pregnancy
CPT/HCPCS: 80053; 85025; 87631